=== PATIENT | male | born 1965 | race Caucasian/White ===

== ENCOUNTER 2023-02-20 11:19 | Emergency (ER) | payer OTHER, SELFPAY ==
--- OUTSIDE RECORDS SUMMARY | 2023-02-20 11:25 | XMS REPORT | Continuity of Care Document ---
:1965 Author Organization [facility] t Address [address] [facility] [address] [place] [address] Care Team Providers Name Role Phone Mel Thomason Primary Care Physician ELVIS GUADALUPE Attending Clinician Unavailable Elvis Guadalupe MD Attending Clinician Carmelo Solis CRNA Attending Clinician Geoff Perrin MD Attending Clinician [phone] Doctor Unassigned, [place] Attending Clinician Unavailable ONEIL SEARS Attending Clinician Unavailable ONEIL SEARS Attending Clinician Unavailable Oneil Sears MD Attending Clinician Radiology Attending Clinician Unavailable RADIOLOGY Attending Clinician Unavailable 1, [facility] Sleep Lab Bed Attending Clinician Unavailable Only, Ad[facility] Test Attending Clinician Unavailable Carol Hollins RN Attending Clinician Unavailable ELVIS GUADALUPE Admitting Clinician Unavailable Elvis Guadalupe MD Admitting Clinician Payers Payer Name Policy Type Policy Number Effective Date Expiration Date S [employer] [id number] 2019 00:00:00 Problems Condition Condition Condition Status Onset Resolution Last Treating Co mments Source Name Details Category Date Date Treatment Clinician Date Obesity Obesity Disease Active Univers (BMI (BMI 5-11 ity of 30-39.9) 30-39.9) 00:00: [place] 00 Medical Branch Allergies, Adverse Reactions, Alerts Allergy Allergy Status Severity Reaction(s) Onset Inactive Treating Comm ents Source Name Type Date Date Clinician PENICILL Drug Active High Hives Univers INS Class 5-04 ity of 00:00: Medical Branch TETANUS DRUG Active Low Other-Cmnt Unive rs TOXOID 5-04 ity of 00:00: Medical Branch DENTAL DRUG Active High Anaphylaxis Unive rs ANESTHET 11-05 ity of IC 00:00: Medical Branch Dental Drug Active Anaphylaxis Patient Univ ers Anesthet Allergy 11-05 given ity of ic 00:00: non-novoc [place] sarah [facility] dental Branch anestheti c and had anaphylac tic reaction, does not know the name of medicatio n. Penicill Drug Active Hives Univers ins Allergy 11-05 ity of 00:00: 00 Medical Branch Tetanus Propensi Active Other - See Un graham Toxoid ty to comments 11-05 ity of adverse 00:00: [place] reaction 00 Medical s to Branch drug n Propensi Active ty to 6-20 adverse 00:00: reaction 00 to drug Tetanus- Propensi Active Diphther ty to 3-25 ia adverse 00:00: Toxoids reaction 00 Td - to drug Intramus cular Tetanus Propensi Active Toxoid ty to 5-12 adverse 00:00: reaction 00 to drug NO KNOWN Drug Active Univers ALLERGIE Class ity of S [facility] Social History Social Habit Start Date Stop Date Quantity Comments Source Exposure to 2022-10-26 2022-11-05 Not sure [facility] SARS-CoV-2 00:00:00 12:10:00 [facility]ly [facility] (event) Branch Tobacco use and 2022-11-05 2022-11-05 User of smokeless Un iversity of exposure 00:00:00 00:00:00 tobacco [facility] Sex Ass[birth year] At [birth year] Universit y of 00:00:00 00:00:00 [facility] Smoking Status Start Date Stop Date Source Never smoked tobacco [facility] [place] [facility] Ordered Filled Start Stop Current Ordering Indication Dosage Frequency Signature Comments Components Source Medication Medication Date Date Medication? Clinician (SIG) Name Name neomycin-po 2022- PRN, Unive rs lymyxin-dex 11-12 Starting ity of amethasone 13:50: 13:59 [place] (MAXITROL) 00 :24 11/12/22 at Med ical 3.5 0850, Branch mg/g-10,000 Until [place] unit/g-0.1 11/12/22 at % 0859, ophthalmic Routine, ointment Intra-op gentamicin 2022- No PRN, Univer s injection 11-12 Starting ity o f 13:50: 13:59 on [facility] [place] 00 :24 11/12/22 at Medical 0850, Branch Until [place] 11/12/22 at 0859, PARMJIT, Intra-op chondroitin 2022- No PRN, Unive rs sulf-sod 11-12 Starting ity of hyaluronate 13:44: 13:59 on [place] (DUOVISC 00 :24 11/12/22 at Medic al VISCO 0844, Branch ELASTIC) Until [place] intraocular 11/12/22 at injection 0859, Routine, Intra-op EPINEPHrine 2022- No PRN, Unive rs (PF) 11-12 Starting ity of 1:1,000 (1 13:43: 13:59 [place] mg/mL) 00 :24 11/12/22 at Medical (ADRENALIN 0843, Branch (PF)) Until [place] injection 11/12/22 at 0859, Routine, Intra-op water for 2022- No PRN, Univers irrigation 11-12 Starting ity of irrigation 13:38: 13:59 [place] solution 00 :24 11/12/22 at Medic al 0838, Branch Until [place] 11/12/22 at 0859, Routine, Intra-op tetracaine 2022- No PRN, Univer s (PONTOCAINE 11-12 Starting ity of ) 0.5 % 13:36: 13:59 on [facility] [place] ophthalmic 00 :24 11/12/22 at Med ical drops 0836, Branch Until [place] 11/12/22 at 0859, Routine, Intra-op eye block 2022- No PRN, Univers syringe 11 11-12 Starting ity of mL 13:35: 13:59 on [facility] [place] 00 :24 11/12/22 at Medical 0835, Branch Until [place] 11/12/22 at 0859, Intra-op dexamethaso 2022- No PRN, Unive rs ne 11-12 Starting ity of (DECADRON 13:35: 13:59 on [facility] [place] PHOSPHATE) 00 :24 11/12/22 at Med ical injection 0835, Branch Until [place] 11/12/22 at 0859, Routine, Intra-op propofoL IV 2022- No Intravenou Univers infusion 11-12 s, ONCE ity of 13:34: 13:57 INTRA [place] 00 :57 PROCEDURE, Medical Starting Branch on [place] 11/12/22 at 0834, Until [place] 11/12/22 at 0857, Routine, Intra-op balanced 2022- No PRN, Univers salt soln 11-12 Starting ity o f no.2 irrig. 13:34: 13:59 on [facility] [place] (BSS) 00 :24 11/12/22 at [facility] ophthalmic 0834, Branch solution Until [place] 11/12/22 at 0859, Routine, Intra-op lactated 2022- No IV Univers ringers IV 11-12 Infusion, ity of infusion 13:29: 13:57 [place] 00 :57 PRN, Medical Starting Branch on [place] 11/12/22 at 0829, Until [place] 11/12/22 at 0857, Routine, Intra-op cyclopent 2022- No .5mL 0.5 mL, Univ ers 1%-tropic 11-12 Left Eye, ity of 1%-phenyl 12:15: 12:19 ONCE[place] 1 [place] 2.5%-ketor 00 :00 dose, On Medic al 0.5% [facility] (MYDRIATIC 11/12/22 at #5) 0715, ophthalmic Routine, solution DSU Pre-op syringe 0.5 mL lactated 2022- No 1000mL at 42 Unive rs ringers IV 5-11 05-11 mL/hr, ity of infusion 12:15: 12:19 1,000 mL, [place] 1,000 mL 00 :00 IV Medical Infusion, Branch ONCE, 1 dose, On [place] 11/12/22 at 0715, Routine, DSU Pre-op cyclopent 2022- No .5mL 0.5 mL, Univ ers 1%-tropic 11-12 Left Eye, ity of 1%-phenyl 12:15: 12:19 ONCE, 1 [place] 2.5%-ketor 00 :00 dose, On Medic al 0.5% [place] Branch (MYDRIATIC 11/12/22 at #5) 0715, ophthalmic Routine, solution DSU Pre-op syringe 0.5 mL lactated 2022- No 1000mL at 42 Unive rs ringers IV 11-12 mL/hr, ity of infusion 12:15: 12:19 1,000 mL, [place] 1,000 mL 00 :00 IV Medical Infusion, Branch ONCE, 1 dose, On [place] 11/12/22 at 0715, Routine, DSU Pre-op loratadine 2022-0 Yes 10mg Take 1 Unive rs 10 mg 5-11 tablet by ity of tablet 10:27: mouth at [place] [address] bedtime as Medical needed for Branch Allergies. fluticasone 2022-0 Yes Use in Univ ers propionate 5-11 each ity of 50 10:27: nostril as [place] mcg/actuati 33 needed. Medic al on nasal Branch spray loratadine 2022-0 Yes 10mg Take 1 Unive rs 10 mg 5-11 tablet by ity of tablet 10:27: mouth at [place] [address] bedtime as Medical needed for Branch Allergies. fluticasone 2022-0 Yes Use in Univ ers propionate 5-11 each ity of 50 10:27: nostril as [place] mcg/actuati 33 needed. Medic al on nasal Branch spray loratadine 3-0 Yes 10mg Take 1 Unive rs 10 mg 5-11 tablet by ity of tablet 10:27: mouth at [place] 33 bedtime as Medical needed for Branch Allergies. fluticasone 3-0 Yes Use in Univ ers propionate 5-11 each ity of 50 10:27: nostril as [place] mcg/actuati 33 needed. Medic al on nasal Branch spray loratadine 0 Yes 10mg Take 1 Unive rs 10 mg 5-11 tablet by ity of tablet 08:59: mouth at [place] 25 bedtime as Medical needed for Branch Allergies. fluticasone 0 Yes Use in Univ ers propionate 5-11 each ity of 50 08:59: nostril as [place] mcg/actuati 25 needed. Medic al on nasal Branch spray TAKE 1 0 No 10 TABLET BY 7-30 MOUTH DAILY 00:00: 00 Dose 2021-0 No Unknown 7-30 00:00: 00 TAKE 1 2021-0 No 20 CAPSULE 7-30 DAILY EVERY 00:00: MORNING 00 BEFORE BREAKFAST. TAKE 1 2021-0 No 500 TABLET 7-30 TWICE 00:00: DAILY. 00 Dose 2021-0 No Unknown 7-30 00:00: 00 TAKE 1 2021-0 No 500 TABLET 7-30 TWICE 00:00: DAILY. 00 TAKE 1 2021-0 No 20 CAPSULE 7-30 DAILY EVERY 00:00: MORNING 00 BEFORE BREAKFAST. Dose 2021-0 No Unknown 7-30 00:00: 00 TAKE 1 2021-0 No 10 TABLET 7-30 DAILY. 00:00: 00 TAKE 1 2021-0 [place] [id number] TABLET 7-17 DAILY. 00:00: 00 ciprofloxac 2021-0 No 1mg in 250 mg 7-15 tablet 00:00: 00 Dose 2021-0 No Unknown 7-15 00:00: 00 TAKE 1 2021-0 [place] [id number] TABLET 7-15 DAILY. 00:00: 00 USE 1 SPRAY 2021-0 No 50 IN EACH 7-15 NOSTRIL 00:00: ONCE DAILY. 00 TAKE 1 2021-0 No 10 TABLET 7-15 DAILY. 00:00: 00 TAKE 1 2021-0 No 10 TABLET 7-15 DAILY. 00:00: 00 TAKE 1 2021-0 No 145 TABLET 7-15 DAILY. 00:00: 00 TAKE 1 2021-0 No 500 TABLET 7-15 TWICE 00:00: DAILY. 00 ciprofloxac 2021-0 No 1mg in 250 mg 7-15 tablet 00:00: 00 Dose 2021-0 No Unknown 7-15 00:00: 00 TAKE 1 2021-0 [place] [id number] TABLET 7-15 DAILY. 00:00: 00 USE 1 SPRAY 2022-0 No 50 IN EACH 7-15 NOSTRIL 00:00: ONCE DAILY. 00 TAKE 1 2022-0 No 10 TABLET 7-15 DAILY. 00:00: 00 TAKE 1 2022-0 No 10 TABLET 7-15 DAILY. 00:00: 00 TAKE 1 2022-0 No 145 TABLET 7-15 DAILY. 00:00: 00 TAKE 1 2022-0 No 500 TABLET 7-15 TWICE 00:00: DAILY. 00 TAKE 1 2022-0 No 145 TABLET 7-02 DAILY. 00:00: 00 TAKE 1 2022-0 No 145 TABLET 7-02 DAILY. 00:00: 00 meloxicam 2022-0 No 1mg 7.5 mg 6-20 tablet 00:00: 00 loratadine 2022-0 No 1mg 10 mg 6-20 tablet 00:00: 00 Tricor 145 2022-0 No 1mg mg tablet 6-20 00:00: 00 losartan 2022-0 No 1mg 100 6-20 mg-hydrochl 00:00: orothiazide 00 25 mg tablet cyclobenzap 2022-0 No 1mg rine 10 mg 6-20 tablet 00:00: 00 metformin 2022-0 No 1mg 500 mg 6-20 tablet 00:00: 00 omeprazole 2022-0 No 1mg 20 mg 6-20 capsule,del 00:00: ayed 00 release TAKE 1 2022-0 No 20 CAPSULE 6-20 DAILY EVERY 00:00: MORNING 00 BEFORE BREAKFAST. TAKE 1 2-0 No 75 TABLET 6-20 DAILY. 00:00: 00 meloxicam 2022-0 No 1mg 7.5 mg 6-20 tablet 00:00: 00 loratadine 2022-0 No 1mg 10 mg 6-20 tablet 00:00: 00 Tricor 145 2022-0 No 1mg mg tablet 6-20 00:00: 00 losartan 2022-0 No 1mg 100 6-20 mg-hydrochl 00:00: orothiazide 00 25 mg tablet cyclobenzap 2022-0 No 1mg rine 10 mg 6-20 tablet 00:00: 00 metformin 2022-0 No 1mg 500 mg 6-20 tablet 00:00: 00 omeprazole 2022-0 No 1mg 20 mg 6-20 capsule,del 00:00: ayed 00 release TAKE 1 2022-0 No 20 CAPSULE 6-20 DAILY EVERY 00:00: MORNING 00 BEFORE BREAKFAST. TAKE 1 2021-0 No 75 TABLET 6-20 DAILY. 00:00: 00 loratadine 2021-0 No 1mg 10 mg 4-02 tablet 00:00: 00 meloxicam 2021-0 No 1mg 7.5 mg 4-02 tablet 00:00: 00 Flonase 2021-0 No 1mcg/ac Allergy 4-02 tuation Relief 50 00:00: mcg/actuati 00 on nasal spray,suspe nsion loratadine 2021-0 No 1mg 10 mg 4-02 tablet 00:00: 00 meloxicam 2021-0 No 1mg 7.5 mg 4-02 tablet 00:00: 00 Flonase 2021-0 No 1mcg/ac Allergy 4-02 tuation Relief 50 00:00: mcg/actuati 00 on nasal spray,suspe nsion cyclobenzap 2020-07 No 1mg rine 10 mg 2-06 tablet 00:00: 00 metformin 2020- No 1mg 500 mg 2-06 tablet 00:00: 00 omeprazole 2020- No 1mg 20 mg 2-06 capsule,del 00:00: ayed 00 release Dose 2020- No Unknown 2-06 00:00: 00 Tricor 145 2020- No 1mg mg tablet 2-06 00:00: 00 losartan 2020-1 No 1mg 100 2-06 mg-hydrochl 00:00: orothiazide 00 25 mg tablet cyclobenzap 2020- No 1mg rine 10 mg 2-06 tablet 00:00: 00 metformin 2020-1 No 1mg 500 mg 2-06 tablet 00:00: 00 omeprazole 2020-1 No 1mg 20 mg 2-06 capsule,del 00:00: ayed 00 release Dose 2020- No Unknown 2-06 00:00: 00 Tricor 145 2020- No 1mg mg tablet 2-06 00:00: 00 losartan 2020-1 No 1mg 100 2-06 mg-hydrochl 00:00: orothiazide 00 25 mg tablet meloxicam 2020- No 1mg 7.5 mg 1-18 tablet 00:00: 00 meloxicam 2020- No 1mg 7.5 mg 1-18 tablet 00:00: 00 Tricor 145 2021-0 No 1mg mg tablet 8-20 00:00: 00 meloxicam 2021-0 No 1mg 7.5 mg 8-20 tablet 00:00: 00 Tricor 145 2021-0 No 1mg mg tablet 8-20 00:00: 00 meloxicam 2021-0 No 1mg 7.5 mg 8-20 tablet 00:00: 00 Tricor 145 2021-0 No 1mg mg tablet 7-28 00:00: 00 Tricor 145 2021-0 No 1mg mg tablet 7-28 00:00: 00 losartan 2021-0 No 1mg 100 7-17 mg-hydrochl 00:00: orothiazide 00 25 mg tablet cyclobenzap 1-0 No 1mg rine 10 mg 7-17 tablet 00:00: 00 metformin 2021-0 No 1mg 500 mg 7-17 tablet 00:00: 00 omeprazole 2021-0 No 1mg 20 mg 7-17 capsule,del 00:00: ayed 00 release Macrobid 1-0 No 1mg 100 mg 7-17 capsule 00:00: 00 losartan 2021-0 No 1mg 100 7-17 mg-hydrochl 00:00: orothiazide 00 25 mg tablet cyclobenzap 1-0 No 1mg rine 10 mg 7-17 tablet 00:00: 00 metformin 2021-0 No 1mg 500 mg 7-17 tablet 00:00: 00 omeprazole 2021-0 No 1mg 20 mg 7-17 capsule,del 00:00: ayed 00 release Macrobid 1-0 No 1mg 100 mg 7-17 capsule 00:00: 00 losartan 2020-1 No 1mg 100 2-19 mg-hydrochl 00:00: orothiazide 00 25 mg tablet cyclobenzap 2020-1 No 1mg rine 10 mg 2-19 tablet 00:00: 00 Tricor 48 2019-1 No 1mg mg tablet 2-19 00:00: 00 metformin 2020-1 No 1mg 500 mg 2-19 tablet 00:00: 00 Cialis 10 2019-1 No 1mg mg tablet 2-19 00:00: 00 omeprazole 2020-1 No 1mg 20 mg 2-19 capsule,del 00:00: ayed 00 release losartan 2020-1 No 1mg 100 2-19 mg-hydrochl 00:00: orothiazide 00 25 mg tablet cyclobenzap 2019- No 1mg rine 10 mg 2-19 tablet 00:00: 00 Tricor 48 2019- No 1mg mg tablet 2-19 00:00: 00 metformin 2019-1 No 1mg 500 mg 2-19 tablet 00:00: 00 Cialis 10 2019- No 1mg mg tablet 2-19 00:00: 00 omeprazole 2019-1 No 1mg 20 mg 2-19 capsule,del 00:00: ayed 00 release fenofibrate 2020-0 Yes TK 1 T PO U nivers 48 mg 9-23 D ity of tablet 00:00: [address] Branch losartan-hy 2020-0 Yes TK 1 T PO U nivers drochloroth 9-23 QD ity of iazide 00:00: [place] 100-25 mg 00 Medical per tablet Branch omeprazole 2020-0 Yes TK ONE C Uni vers 20 mg 9-23 PO QD ity of capsule 00:00: [place] [address] Medical Branch fenofibrate 2020-0 Yes TK 1 T PO U nivers 48 mg 9-23 D ity of tablet 00:00: [place] [address] Medical Branch losartan-hy 2020-0 Yes TK 1 T PO U nivers drochloroth 9-23 QD ity of iazide 00:00: [place] 100-25 mg 00 Medical per tablet Branch omeprazole 2020-0 Yes TK ONE C Uni vers 20 mg 9-23 PO QD ity of capsule 00:00: [address] Branch fenofibrate 2020-0 Yes TK 1 T PO U nivers 48 mg 9-23 D ity of tablet 00:00: [place] [address] Medical Branch losartan-hy 2020-0 Yes TK 1 T PO U nivers drochloroth 9-23 QD ity of iazide 00:00: [place] 100-25 mg 00 Medical per tablet Branch omeprazole 2020-0 Yes TK ONE C Uni vers 20 mg 9-23 PO QD ity of capsule 00:00: [address] Branch fenofibrate 2020-0 Yes TK 1 T PO U nivers 48 mg 9-23 D ity of tablet 00:00: [place] [address] Medical Branch losartan-hy 2020-0 Yes TK 1 T PO U nivers drochloroth 9-23 QD ity of iazide 00:00: [place] 100-25 mg 00 Medical per tablet Branch omeprazole 2020-0 Yes TK ONE C Uni vers 20 mg 9-23 PO QD ity of capsule 00:00: [place] 00 Medical Branch fenofibrate 2020-0 Yes TK 1 T PO U nivers 48 mg 9-23 D ity of tablet 00:00: [place] 00 Medical Branch losartan-hy 2020-0 Yes TK 1 T PO U nivers drochloroth 9-23 QD ity of iazide 00:00: [place] 100-25 mg 00 Medical per tablet Branch omeprazole 2020-0 Yes TK ONE C Uni vers 20 mg 9-23 PO QD ity of capsule 00:00: [place] Medical Branch fenofibrate 2020-0 Yes TK 1 T PO U nivers 48 mg 9-23 D ity of tablet 00:00: [place] Medical Branch losartan-hy 2020-0 Yes TK 1 T PO U nivers drochloroth 9-23 QD ity of iazide 00:00: [place] 100-25 mg 00 Medical per tablet Branch omeprazole 2020-0 Yes TK ONE C Uni vers 20 mg 9-23 PO QD ity of capsule 00:00: [place] Medical Branch fenofibrate 2020-0 Yes TK 1 T PO U nivers 48 mg 9-23 D ity of tablet 00:00: [place] [address] Medical Branch losartan-hy 2020-0 Yes TK 1 T PO U nivers drochloroth 9-23 QD ity of iazide 00:00: [place] 100-25 mg 00 Medical per tablet Branch omeprazole 2020-0 Yes TK ONE C Uni vers 20 mg 9-23 PO QD ity of capsule 00:00: [place] [facility] Branch fenofibrate 2020-0 Yes TK 1 T PO U nivers 48 mg 9-23 D ity of tablet 00:00: [place] 00 Medical Branch losartan-hy 2020-0 Yes TK 1 T PO U nivers drochloroth 9-23 QD ity of iazide 00:00: [place] 100-25 mg 00 Medical per tablet Branch omeprazole 2020-0 Yes TK ONE C Uni vers 20 mg 9-23 PO QD ity of capsule 00:00: [place] 00 Medical Branch fenofibrate 2020-0 Yes TK 1 T PO U nivers 48 mg 9-23 D ity of tablet 00:00: [place] [address] Medical Branch losartan-hy 2020-0 Yes TK 1 T PO U nivers drochloroth 9-23 QD ity of iazide 00:00: [place] 100-25 mg 00 Medical per tablet Branch omeprazole 2020-0 Yes TK ONE C Uni vers 20 mg 9-23 PO QD ity of capsule 00:00: [place] 00 Medical Branch fenofibrate 2020-0 Yes TK 1 T PO U nivers 48 mg 9-23 D ity of tablet 00:00: [place] 00 Medical Branch losartan-hy 2020-0 Yes TK 1 T PO U nivers drochloroth 9-23 QD ity of iazide 00:00: [place] 100-25 mg 00 Medical per tablet Branch omeprazole 2020-0 Yes TK ONE C Uni vers 20 mg 9-23 PO QD ity of capsule 00:00: [place] 00 Medical Branch fenofibrate 2020-0 Yes TK 1 T PO U nivers 48 mg 9-23 D ity of tablet 00:00: [place] 00 Medical Branch losartan-hy 2020-0 Yes TK 1 T PO U nivers drochloroth 9-23 QD ity of iazide 00:00: [place] 100-25 mg 00 Medical per tablet Branch omeprazole 2020-0 Yes TK ONE C Uni vers 20 mg 9-23 PO QD ity of capsule 00:00: [place] 00 Medical Branch fenofibrate 2020-0 Yes TK 1 T PO U nivers 48 mg 9-23 D ity of tablet 00:00: [place] 00 Medical Branch losartan-hy 2020-0 Yes TK 1 T PO U nivers drochloroth 9-23 QD ity of iazide 00:00: [place] 100-25 mg 00 Medical per tablet Branch omeprazole 2020-0 Yes TK ONE C Uni vers 20 mg 9-23 PO QD ity of capsule 00:00: [place] 00 Medical Branch fenofibrate 2020-0 Yes TK 1 T PO U nivers 48 mg 9-23 D ity of tablet 00:00: [place] 00 Medical Branch losartan-hy 2020-0 Yes TK 1 T PO U nivers drochloroth 9-23 QD ity of iazide 00:00: [place] 100-25 mg 00 Medical per tablet Branch omeprazole 2020-0 Yes TK ONE C Uni vers 20 mg 9-23 PO QD ity of capsule 00:00: [place] 00 Medical Branch fenofibrate 2020-0 Yes TK 1 T PO U nivers 48 mg 9-23 D ity of tablet 00:00: [place] 00 Medical Branch losartan-hy 2020-0 Yes TK 1 T PO U nivers drochloroth 9-23 QD ity of iazide 00:00: [place] 100-25 mg 00 Medical per tablet Branch omeprazole 2020-0 Yes TK ONE C Uni vers 20 mg 9-23 PO QD ity of capsule 00:00: [place] 00 Medical Branch fenofibrate 2020-0 Yes TK 1 T PO U nivers 48 mg 9-23 D ity of tablet 00:00: [place] 00 Medical Branch losartan-hy 2020-0 Yes TK 1 T PO U nivers drochloroth 9-23 QD ity of iazide 00:00: [place] 100-25 mg 00 Medical per tablet Branch omeprazole 2020-0 Yes TK ONE C Uni vers 20 mg 9-23 PO QD ity of capsule 00:00: [place] 00 Medical Branch fenofibrate 2020-0 Yes TK 1 T PO U nivers 48 mg 9-23 D ity of tablet 00:00: [place] 00 Medical Branch losartan-hy 2020-0 Yes TK 1 T PO U nivers drochloroth 9-23 QD ity of iazide 00:00: [place] 100-25 mg 00 Medical per tablet Branch omeprazole 2020-0 Yes TK ONE C Uni vers 20 mg 9-23 PO QD ity of capsule 00:00: [place] 00 Medical Branch fenofibrate 2020-0 Yes TK 1 T PO U nivers 48 mg 9-23 D ity of tablet 00:00: [place] 00 Medical Branch losartan-hy 2020-0 Yes TK 1 T PO U nivers drochloroth 9-23 QD ity of iazide 00:00: [place] 100-25 mg 00 Medical per tablet Branch omeprazole 2020-0 Yes TK ONE C Uni vers 20 mg 9-23 PO QD ity of capsule 00:00: [place] 00 Medical Branch fenofibrate 2020-0 Yes TK 1 T PO U nivers 48 mg 9-23 D ity of tablet 00:00: [place] 00 Medical Branch losartan-hy 2020-0 Yes TK 1 T PO U nivers drochloroth 9-23 QD ity of iazide 00:00: [place] 100-25 mg 00 Medical per tablet Branch omeprazole 2020-0 Yes TK ONE C Uni vers 20 mg 9-23 PO QD ity of capsule 00:00: [place] 00 Medical Branch fenofibrate 2020-0 Yes TK 1 T PO U nivers 48 mg 9-23 D ity of tablet 00:00: [place] 00 Medical Branch losartan-hy 2020-0 Yes TK 1 T PO U nivers drochloroth 9-23 QD ity of iazide 00:00: [place] 100-25 mg 00 Medical per tablet Branch omeprazole 2020-0 Yes TK ONE C Uni vers 20 mg 9-23 PO QD ity of capsule 00:00: [place] 00 Medical Branch fenofibrate 2020-0 Yes TK 1 T PO U nivers 48 mg 9-23 D ity of tablet 00:00: [place] 00 Medical Branch losartan-hy 2020-0 Yes TK 1 T PO U nivers drochloroth 9-23 QD ity of iazide 00:00: [place] 100-25 mg 00 Medical per tablet Branch omeprazole 2020-0 Yes TK ONE C Uni vers 20 mg 9-23 PO QD ity of capsule 00:00: [place] [address] Medical Branch fenofibrate 2020-0 Yes TK 1 T PO U nivers 48 mg 9-23 D ity of tablet 00:00: [place] [address] Medical Branch losartan-hy 2020-0 Yes TK 1 T PO U nivers drochloroth 9-23 QD ity of iazide 00:00: [place] 100-25 mg 00 Medical per tablet Branch omeprazole 2020-0 Yes TK ONE C Uni vers 20 mg 9-23 PO QD ity of capsule 00:00: [place] 00 Medical Branch fenofibrate 2020-0 Yes TK 1 T PO U nivers 48 mg 9-23 D ity of tablet 00:00: [place] 00 Medical Branch losartan-hy 2020-0 Yes TK 1 T PO U nivers drochloroth 9-23 QD ity of iazide 00:00: [place] 100-25 mg 00 Medical per tablet Branch omeprazole 2020-0 Yes TK ONE C Uni vers 20 mg 9-23 PO QD ity of capsule 00:00: [place] 00 Medical Branch fenofibrate 2020-0 Yes TK 1 T PO U nivers 48 mg 9-23 D ity of tablet 00:00: [place] 00 Medical Branch losartan-hy 2020-0 Yes TK 1 T PO U nivers drochloroth 9-23 QD ity of iazide 00:00: [place] 100-25 mg 00 Medical per tablet Branch omeprazole 2020-0 Yes TK ONE C Uni vers 20 mg 9-23 PO QD ity of capsule 00:00: [place] 00 Medical Branch fenofibrate 2020-0 Yes TK 1 T PO U nivers 48 mg 9-23 D ity of tablet 00:00: [place] 00 Medical Branch losartan-hy 2020-0 Yes TK 1 T PO U nivers drochloroth 9-23 QD ity of iazide 00:00: [place] 100-25 mg 00 Medical per tablet Branch omeprazole 2020-0 Yes TK ONE C Uni vers 20 mg 9-23 PO QD ity of capsule 00:00: [place] 00 Medical Branch fenofibrate 2020-0 Yes TK 1 T PO U nivers 48 mg 9-23 D ity of tablet 00:00: [place] 00 Medical Branch losartan-hy 2020-0 Yes TK 1 T PO U nivers drochloroth 9-23 QD ity of iazide 00:00: [place] 100-25 mg 00 Medical per tablet Branch omeprazole 2020-0 Yes TK ONE C Uni vers 20 mg 9-23 PO QD ity of capsule 00:00: [place] 00 Medical Branch fenofibrate 2020-0 Yes TK 1 T PO U nivers 48 mg 9-23 D ity of tablet 00:00: [place] 00 Medical Branch losartan-hy 2020-0 Yes TK 1 T PO U nivers drochloroth 9-23 QD ity of iazide 00:00: [place] 100-25 mg 00 Medical per tablet Branch omeprazole 2020-0 Yes TK ONE C Uni vers 20 mg 9-23 PO QD ity of capsule 00:00: [place] 00 Medical Branch sulfamethox 2020-0 Yes TK 1 T PO U nivers azole-trime 9-12 BID ity of thoprim 00:00: [place] 800-160 mg 00 Medical per tablet Branch sulfamethox 2020-0 Yes TK 1 T PO U nivers azole-trime 9-12 BID ity of thoprim 00:00: [place] 800-160 mg 00 Medical per tablet Branch sulfamethox 2020-0 Yes TK 1 T PO U nivers azole-trime 9-12 BID ity of thoprim 00:00: [place] 800-160 mg 00 Medical per tablet Branch sulfamethox 2020-0 Yes TK 1 T PO U nivers azole-trime 9-12 BID ity of thoprim 00:00: [place] 800-160 mg 00 Medical per tablet Branch sulfamethox 2020-0 Yes TK 1 T PO U nivers azole-trime 9-12 BID ity of thoprim 00:00: [place] 800-160 mg 00 Medical per tablet Branch sulfamethox 2020-0 Yes TK 1 T PO U nivers azole-trime 9-12 BID ity of thoprim 00:00: [place] 800-160 mg 00 Medical per tablet Branch sulfamethox 2020-0 Yes TK 1 T PO U nivers azole-trime 9-12 BID ity of thoprim 00:00: [place] 800-160 mg 00 Medical per tablet Branch sulfamethox 2020-0 Yes TK 1 T PO U nivers azole-trime 9-12 BID ity of thoprim 00:00: [place] 800-160 mg 00 Medical per tablet Branch sulfamethox 2020-0 Yes TK 1 T PO U nivers azole-trime 9-12 BID ity of thoprim 00:00: [place] 800-160 mg 00 Medical per tablet Branch sulfamethox 2020-0 Yes TK 1 T PO U nivers azole-trime 9-12 BID ity of thoprim 00:00: [place] 800-160 mg 00 Medical per tablet Branch sulfamethox 2020-0 Yes TK 1 T PO U nivers azole-trime 9-12 BID ity of thoprim 00:00: [place] 800-160 mg 00 Medical per tablet Branch sulfamethox 2020-0 Yes TK 1 T PO U nivers azole-trime 9-12 BID ity of thoprim 00:00: [place] 800-160 mg 00 Medical per tablet Branch sulfamethox 2020-0 Yes TK 1 T PO U nivers azole-trime 9-12 BID ity of thoprim 00:00: [place] 800-160 mg 00 Medical per tablet Branch sulfamethox 2020-0 Yes TK 1 T PO U nivers azole-trime 9-12 BID ity of thoprim 00:00: [place] 800-160 mg 00 Medical per tablet Branch sulfamethox 2020-0 Yes TK 1 T PO U nivers azole-trime 9-12 BID ity of thoprim 00:00: [place] 800-160 mg 00 Medical per tablet Branch sulfamethox 2020-0 Yes TK 1 T PO U nivers azole-trime 9-12 BID ity of thoprim 00:00: [place] 800-160 mg 00 Medical per tablet Branch sulfamethox 2020-0 Yes TK 1 T PO U nivers azole-trime 9-12 BID ity of thoprim 00:00: [place] 800-160 mg 00 Medical per tablet Branch sulfamethox 2020-0 Yes TK 1 T PO U nivers azole-trime 9-12 BID ity of thoprim 00:00: [place] 800-160 mg 00 Medical per tablet Branch sulfamethox 2020-0 Yes TK 1 T PO U nivers azole-trime 9-12 BID ity of thoprim 00:00: [place] 800-160 mg 00 Medical per tablet Branch sulfamethox 2020-0 Yes TK 1 T PO U nivers azole-trime 9-12 BID ity of thoprim 00:00: [place] 800-160 mg 00 Medical per tablet Branch sulfamethox 2020-0 Yes TK 1 T PO U nivers azole-trime 9-12 BID ity of thoprim 00:00: [place] 800-160 mg 00 Medical per tablet Branch sulfamethox 2020-0 Yes TK 1 T PO U nivers azole-trime 9-12 BID ity of thoprim 00:00: [place] 800-160 mg 00 Medical per tablet Branch sulfamethox 2020-0 Yes TK 1 T PO U nivers azole-trime 9-12 BID ity of thoprim 00:00: [place] 800-160 mg 00 Medical per tablet Branch sulfamethox 2020-0 Yes TK 1 T PO U nivers azole-trime 9-12 BID ity of thoprim 00:00: [place] 800-160 mg 00 Medical per tablet Branch sulfamethox 2020-0 Yes TK 1 T PO U nivers azole-trime 9-12 BID ity of thoprim 00:00: [place] 800-160 mg 00 Medical per tablet Branch sulfamethox 2020-0 Yes TK 1 T PO U nivers azole-trime 9-12 BID ity of thoprim 00:00: [place] 800-160 mg 00 Medical per tablet Branch Bactrim DS 2020-0 No 1mg 800 mg-160 9-12 mg tablet 00:00: 00 Bactrim DS 2020-0 No 1mg 800 mg-160 9-12 mg tablet 00:00: 00 Macrobid 2020-0 No 1mg 100 mg 8-08 capsule 00:00: 00 Macrobid 2020-0 No 1mg 100 mg 8-08 capsule 00:00: 00 losartan 2020-0 No 1mg 100 6-06 mg-hydrochl 00:00: orothiazide 00 25 mg tablet cyclobenzap 2020-0 No 1mg rine 10 mg 6-06 tablet 00:00: 00 Tricor 48 2020-0 No 1mg mg tablet 6- 00:00: 00 metformin 2020-0 No 1mg 500 mg 6-06 tablet 00:00: 00 Cialis 10 2020-0 No 1mg mg tablet 6 00:00: 00 omeprazole 2020-0 No 1mg 20 mg 6-06 capsule,del 00:00: ayed 00 release indomethaci 2020-0 No 1mg n ER 75 mg 6-06 capsule,ext 00:00: ended 00 release losartan 2020-0 No 1mg 100 6-06 mg-hydrochl 00:00: orothiazide 00 25 mg tablet cyclobenzap 2020-0 No 1mg rine 10 mg 6-06 tablet 00:00: 00 Tricor 48 2020-0 No 1mg mg tablet 6 00:00: 00 metformin 2020-0 No 1mg 500 mg 6-06 tablet 00:00: 00 Cialis 10 2020-0 No 1mg mg tablet 12-08 00:00: 00 omeprazole 2020-0 No 1mg 20 mg 6-06 capsule,del 00:00: ayed 00 release indomethaci 2020-0 No 1mg n ER 75 mg 6-06 capsule,ext 00:00: ended 00 release losartan 2020-0 No 1mg 100 5-05 mg-hydrochl 00:00: orothiazide 00 25 mg tablet omeprazole 2020-0 No 1mg 20 mg 5-05 capsule,del 00:00: ayed 00 release indomethaci 2020-0 No 1mg n ER 75 mg 5-05 capsule,ext 00:00: ended 00 release losartan 2020-0 No 1mg 100 5-05 mg-hydrochl 00:00: orothiazide 00 25 mg tablet omeprazole 2020-0 No 1mg 20 mg 5-05 capsule,del 00:00: ayed 00 release indomethaci 2020-0 No 1mg n ER 75 mg 5-05 capsule,ext 00:00: ended 00 release losartan 2020-0 No 1mg 100 4-01 mg-hydrochl 00:00: orothiazide 00 25 mg tablet omeprazole 2020-0 No 1mg 20 mg 4-01 capsule,del 00:00: ayed 00 release losartan 2020-0 No 1mg 100 4-01 mg-hydrochl 00:00: orothiazide 00 25 mg tablet omeprazole 2020-0 No 1mg 20 mg 4- capsule,del 00:00: ayed 00 release prednisone 2020-0 No 1mg 5 mg tablet 2- 00:00: 00 cyclobenzap 2020-0 No 1mg rine 10 mg 2-01 tablet 00:00: 00 indomethaci 2020-0 No 1mg n ER 75 mg 2- capsule,ext 00:00: ended 00 release prednisone 2020-0 No 1mg 5 mg tablet 2 00:00: 00 cyclobenzap 2020-0 No 1mg rine 10 mg 2- tablet 00:00: 00 indomethaci 2020-0 No 1mg n ER 75 mg 2- capsule,ext 00:00: ended 00 release Tricor 48 2019-0 No 1mg mg tablet 03-28 00:00: 00 Tricor 48 2019-0 No 1mg mg tablet 03-28 00:00: 00 losartan 2019-0 No 1mg 100 9-21 mg-hydrochl 00:00: orothiazide 00 25 mg tablet metformin 2019-0 No 1mg 500 mg 9-21 tablet 00:00: 00 Cialis 10 2019-0 No 1mg mg tablet 03-25 00:00: 00 indomethaci 2019-0 No 1mg n ER 75 mg 9- capsule,ext 00:00: ended 00 release omeprazole 2019-0 No 1mg 20 mg 9-21 capsule,del 00:00: ayed 00 release losartan 2019-0 No 1mg 100 9-21 mg-hydrochl 00:00: orothiazide 00 25 mg tablet metformin 2019-0 No 1mg 500 mg 9-21 tablet 00:00: 00 Cialis 10 2019-0 No 1mg mg tablet 03-25 00:00: 00 indomethaci 2019-0 No 1mg n ER 75 mg 9-21 capsule,ext 00:00: ended 00 release omeprazole 2019-0 No 1mg 20 mg 9-21 capsule,del 00:00: ayed 00 release metformin 2018-1 No 1mg 500 mg 1-03 tablet 00:00: 00 indomethaci 2018-1 No 1mg n ER 75 mg 1-03 capsule,ext 00:00: ended 00 release omeprazole 2018-1 No 1mg 20 mg 1-03 capsule,del 00:00: ayed 00 release metformin 2018-1 No 1mg 500 mg 1-03 tablet 00:00: 00 indomethaci 2018-1 No 1mg n ER 75 mg 1-03 capsule,ext 00:00: ended 00 release omeprazole 2018-1 No 1mg 20 mg 1-03 capsule,del 00:00: ayed 00 release metformin 2018-0 No 1mg 500 mg 5-19 tablet 00:00: 00 indomethaci 2018-0 No 1mg n ER 75 mg 5-19 capsule,ext 00:00: ended 00 release omeprazole 2018-0 No 1mg 20 mg 5-19 capsule,del 00:00: ayed 00 release indomethaci 2018-0 No 1mg n ER 75 mg 5-19 capsule,ext 00:00: ended 00 release metformin 2018-0 No 1mg 500 mg 5-19 tablet 00:00: 00 indomethaci 2018-0 No 1mg n ER 75 mg 5-19 capsule,ext 00:00: ended 00 release omeprazole 2018-0 No 1mg 20 mg 5-19 capsule,del 00:00: ayed 00 release indomethaci 2018-0 No 1mg n ER 75 mg 5-19 capsule,ext 00:00: ended 00 release metformin 2018-0 No 1mg 500 mg 4-06 tablet 00:00: 00 metformin 2018-0 No 1mg 500 mg 4-06 tablet 00:00: 00 Cialis 2.5 2018-0 No 1mg mg tablet 1-13 00:00: 00 metformin 2018-0 No 1mg 500 mg 1-13 tablet 00:00: 00 indomethaci 2018-0 No 1mg n ER 75 mg 1-13 capsule,ext 00:00: ended 00 release Cialis 2.5 2018-0 No 1mg mg tablet 1-13 00:00: 00 metformin 2018-0 No 1mg 500 mg 1-13 tablet 00:00: 00 indomethaci 2018-0 No 1mg n ER 75 mg 1-13 capsule,ext 00:00: ended 00 release metformin 2018-0 No 1mg 500 mg 1-05 tablet 00:00: 00 indomethaci 2018-0 No 1mg n 50 mg 1-05 capsule 00:00: 00 metformin 2018-0 No 1mg 500 mg 1-05 tablet 00:00: 00 indomethaci 2018-0 No 1mg n 50 mg 1-05 capsule 00:00: 00 indomethaci 2017-1 No 1mg n 50 mg 2-06 capsule 00:00: 00 indomethaci 2017-1 No 1mg n 50 mg 2-06 capsule 00:00: 00 metformin 2017-0 No 1mg 500 mg 9-23 tablet 00:00: 00 omeprazole 2017-0 No 1mg 20 mg 9-23 capsule,del 00:00: ayed 00 release indomethaci 2017-0 No 1mg n 50 mg 9-23 capsule 00:00: 00 metformin 2017-0 No 1mg 500 mg 9-23 tablet 00:00: 00 omeprazole 2017-0 No 1mg 20 mg 9-23 capsule,del 00:00: ayed 00 release indomethaci 2017-0 No 1mg n 50 mg 9-23 capsule 00:00: 00 indomethaci 2017-0 No 1mg n 50 mg 8-24 capsule 00:00: 00 indomethaci 2017-0 No 1mg n 50 mg 8-24 capsule 00:00: 00 omeprazole 2017-0 No 1mg 20 mg 4-22 capsule,del 00:00: ayed 00 release indomethaci 2017-0 No 1mg n 50 mg 4-22 capsule 00:00: 00 omeprazole 2017-0 No 1mg 20 mg 4-22 capsule,del 00:00: ayed 00 release indomethaci 2017-0 No 1mg n 50 mg 4-22 capsule 00:00: 00 indomethaci 2017-0 No 1mg n 50 mg 4-19 capsule 00:00: 00 indomethaci 2017-0 No 1mg n 50 mg 4-19 capsule 00:00: 00 indomethaci 2017-0 No 1mg n 50 mg 1-23 capsule 00:00: 00 indomethaci 2017-0 No 1mg n 50 mg 1-23 capsule 00:00: 00 cetirizine 2016-1 No 1mg 10 mg 1-05 tablet 00:00: 00 cetirizine 2016-1 No 1mg 10 mg 1-05 tablet 00:00: 00 omeprazole 2015-1 No 1mg 20 mg 1-05 capsule,del 00:00: ayed 00 release indomethaci 2015-1 No 1mg n 50 mg 1-05 capsule 00:00: 00 omeprazole 2015-1 No 1mg 20 mg 1-05 capsule,del 00:00: ayed 00 release indomethaci 2015-1 No 1mg n 50 mg 1-05 capsule 00:00: 00 omeprazole 2016-1 No 1mg 20 mg 0-21 capsule,del 00:00: ayed 00 release omeprazole 2016-1 No 1mg 20 mg 0-21 capsule,del 00:00: ayed 00 release omeprazole 2016-0 No 1mg 20 mg 8-30 capsule,del 00:00: ayed 00 release indomethaci 2016-0 No 1mg n 50 mg 8-30 capsule 00:00: 00 omeprazole 2016-0 No 1mg 20 mg 8-30 capsule,del 00:00: ayed 00 release indomethaci 2016-0 No 1mg n 50 mg 8-30 capsule 00:00: 00 Bactrim DS 2016-0 No 1mg 800 mg-160 7-27 mg tablet 00:00: 00 Bactrim DS 2016-0 No 1mg 800 mg-160 7-27 mg tablet 00:00: 00 Cipro 500 2016-0 No 1mg mg tablet 6-11 00:00: 00 omeprazole 2016-0 No 1mg 20 mg 6-11 capsule,del 00:00: ayed 00 release indomethaci 2016-0 No 1mg n 50 mg 6-11 capsule 00:00: 00 Cipro 500 2016-0 No 1mg mg tablet 6-11 00:00: 00 omeprazole 2016-0 No 1mg 20 mg 6-11 capsule,del 00:00: ayed 00 release indomethaci 2016-0 No 1mg n 50 mg 6-11 capsule 00:00: 00 omeprazole 2016-0 No 1mg 20 mg 5-18 capsule,del 00:00: ayed 00 release indomethaci 2016-0 No 1mg n 50 mg 5-18 capsule 00:00: 00 omeprazole 2016-0 No 1mg 20 mg 5-18 capsule,del 00:00: ayed 00 release indomethaci 2016-0 No 1mg n 50 mg 5-18 capsule 00:00: 00 ProAir HFA 2016-0 No 2mcg/ac 90 3-14 tuation mcg/actuati 00:00: on aerosol 00 inhaler ProAir HFA 2016-0 No 2mcg/ac 90 3-14 tuation mcg/actuati 00:00: on aerosol 00 inhaler metformin 2016-0 No 1mg 500 mg 3-14 tablet 00:00: 00 omeprazole 2016-0 No 1mg 20 mg 3-14 capsule,del 00:00: ayed 00 release indomethaci 2016-0 No 1mg n 50 mg 3-14 capsule 00:00: 00 ProAir HFA 2016-0 No 2mcg/ac 90 3-14 tuation mcg/actuati 00:00: on aerosol 00 inhaler ProAir HFA 2016-0 No 2mcg/ac 90 3-14 tuation mcg/actuati 00:00: on aerosol 00 inhaler metformin 2016-0 No 1mg 500 mg 3-14 tablet 00:00: 00 omeprazole 2016-0 No 1mg 20 mg 3-14 capsule,del 00:00: ayed 00 release indomethaci 2016-0 No 1mg n 50 mg 3-14 capsule 00:00: 00 metformin 2016-0 No 1mg 500 mg 1-05 tablet 00:00: 00 omeprazole 2016-0 No 1mg 20 mg 1-05 capsule,del 00:00: ayed 00 release indomethaci 2016-0 No 1mg n 50 mg 1-05 capsule 00:00: 00 metformin 2016-0 No 1mg 500 mg 1-05 tablet 00:00: 00 omeprazole 2016-0 No 1mg 20 mg 1-05 capsule,del 00:00: ayed 00 release indomethaci 2016-0 No 1mg n 50 mg 1-05 capsule 00:00: 00 metformin 2015-1 No 5mg 1,000 mg 1-25 tablet 00:00: 00 metformin 2015-1 No 5mg 1,000 mg 1-25 tablet 00:00: 00 indomethaci 2015-1 No 1mg n 50 mg 0-19 capsule 00:00: 00 indomethaci 2015-1 No 1mg n 50 mg 0-19 capsule 00:00: 00 omeprazole 2015-1 No 1mg 20 mg 0-13 capsule,del 00:00: ayed 00 release indomethaci 2015-1 No 1mg n 50 mg 0-13 capsule 00:00: 00 omeprazole 2015-1 No 1mg 20 mg 0-13 capsule,del 00:00: ayed 00 release indomethaci 2015-1 No 1mg n 50 mg 0-13 capsule 00:00: 00 metformin 2015-0 No 5mg 1,000 mg 8-06 tablet 00:00: 00 omeprazole 2015-0 No 1mg 20 mg 8-06 capsule,del 00:00: ayed 00 release metformin 2015-0 No 5mg 1,000 mg 8-06 tablet 00:00: 00 omeprazole 2015-0 No 1mg 20 mg 8-06 capsule,del 00:00: ayed 00 release omeprazole 2015-0 No 1mg 20 mg 7-17 capsule,del 00:00: ayed 00 release omeprazole 2015-0 No 1mg 20 mg 7-17 capsule,del 00:00: ayed 00 release omeprazole 2015-0 No 1mg 20 mg 6-10 capsule,del 00:00: ayed 00 release omeprazole 2015-0 No 1mg 20 mg 6-10 capsule,del 00:00: ayed 00 release metformin 2015-0 No 5mg 1,000 mg 6-09 tablet 00:00: 00 metformin 2015-0 No 5mg 1,000 mg 6-09 tablet 00:00: 00 metformin 2015-0 No 5mg 1,000 mg 5-13 tablet 00:00: 00 metformin 2015-0 No 5mg 1,000 mg 5-13 tablet 00:00: 00 metformin 2014-0 No 5mg 1,000 mg 9-19 tablet 00:00: 00 metformin 2014-0 No 5mg 1,000 mg 9-19 tablet 00:00: 00 Vital Signs Vital Name Observation Time Observation Value Comments Source Systolic blood 2022-11-12 14:15:00 133 mm[facility]Hg[facility] 2022-11-12 14:15:00 87 mm[Hg] Unive [facility] Respiratory rate 2022-11-12 14:15:00 18 /min [facility] Oxygen saturation in 2022-11-12 14:15:00 95 /min [facility] Arterial blood by [facility] Pulse oximetry Branch Heart rate 2022-11-12 14:05:00 92 /min [facility] Body temperature 2022-11-12 13:56:00 36.11 Francia [facility] Body height 2022-11-05 17:00:00 180.3 cm [facility] Body weight 2022-11-05 17:00:00 111.585 kg [facility] BMI 2022-11-05 17:00:00 34.31 kg/m2 [facility] Respiratory rate 2022-11-12 13:54:00 15 /min [facility] Systolic blood 2022-11-12 12:18:00 137 mm[Hg] Univer sity of [facility] Diastolic blood 2022-11-12 12:18:00 87 mm[Hg] Unive rsity of [facility] Heart rate 2022-11-12 12:18:00 97 /min [facility] [employer] Body temperature 2022-11-12 12:18:00 36.11 Francia Univ ersity [facility] Respiratory rate 2022-11-12 12:18:00 19 /min Univ ersity of [facility] Oxygen saturation in 2022-11-12 12:18:00 98 /min [facility] of Arterial blood by [facility] Pulse oximetry Branch Body height 2022-11-05 17:00:00 180.3 cm [facility] [employer] Body weight 2022-11-05 17:00:00 111.585 kg [facility] [employer] [facility] BMI 2022-11-05 17:00:00 34.31 kg/m2 [facility] Systolic blood 2020-09-04 22:51:00 128 mm[Hg] Univer sity of [facility] Diastolic blood 2020-09-04 22:51:00 87 mm[Hg] Unive rsity of [facility] Heart rate 2020-09-04 22:50:00 109 /min [facility] Respiratory rate 2020-09-04 22:50:00 19 /min Univ ersity of [facility] Body height 2020-09-04 22:50:00 180.3 cm [facility] Body weight 2020-09-04 22:50:00 123.832 kg [facility] BMI 2020-09-04 22:50:00 38.08 kg/m2 [facility] Systolic blood 2020-07-31 22:25:00 118 mm[Hg] Univer sity of [facility] Diastolic blood 2020-07-31 22:25:00 80 mm[Hg] Unive rsity of [facility] Heart rate 2020-07-31 22:25:00 113 /min [facility] Respiratory rate 2020-07-31 22:25:00 19 /min [facility] [place] [facility] Body height 2020-07-31 22:25:00 180.3 [facility] Body weight 2020-07-31 22:25:00 123.832 kg [facility] BMI 2020-07-31 22:25:00 38.08 kg/m2 [facility] Oxygen saturation in 2020-07-31 22:25:00 95 /min [facility] Arterial blood by [facility] Pulse oximetry Branch Systolic blood 2020-05-29 21:33:00 146 mm[Hg] Univer sity of pressure [facility] Diastolic blood 2020-05-29 21:33:00 96 mm[Hg] Unive rsity of pressure [facility] Heart rate 2020-05-29 21:33:00 103 /min [facility] Respiratory rate 2020-05-29 21:33:00 19 /min [facility] in 2020-05-29 21:33:00 97 /min [facility] Arterial blood by [facility] Pulse oximetry Branch BP Systolic 2022-01-31 11:38:00 134 mm[Hg] BP Diastolic 2022-01-31 11:38:00 91 mm[Hg] Weight Measured 2022-01-31 11:38:00 275.80 pounds Height Measured 2022-01-31 11:38:00 70.00 inches Body Temperature 2022-01-31 11:38:00 98.50 degrees Heart Rate 2022-01-31 11:38:00 95.00 /min Respiratory Rate 2022-01-31 11:38:00 BP Systolic 2022-01-16 11:36:00 162 mm[Hg] BP Diastolic 2022-01-16 11:36:00 98 mm[Hg] Weight Measured 2022-01-16 11:36:00 276.60 pounds Height Measured 2022-01-16 11:36:00 70.00 inches Body Temperature 2022-01-16 11:36:00 98.10 degrees Heart Rate 2022-01-16 11:36:00 97.00 /min Respiratory Rate 2022-01-16 11:36:00 18.00 /min BP Systolic 2021-10-04 10:49:00 137 mm[Hg] BP Diastolic 2021-10-04 10:49:00 91 mm[Hg] Weight Measured 2021-10-04 10:49:00 278.00 pounds Height Measured 2021-10-04 10:49:00 70.00 inches Body Temperature 2021-10-04 10:49:00 98.10 degrees Heart Rate 2021-10-04 10:49:00 97.00 /min Respiratory Rate 2021-10-04 10:49:00 BP Systolic 2021-06-21 08:53:00 138 mm[Hg] BP Diastolic 2021-06-21 08:53:00 89 mm[Hg] Weight Measured 2021-06-21 08:53:00 278.00 pounds Height Measured 2021-06-21 08:53:00 70.00 inches Body Temperature 2021-06-21 08:53:00 97.80 degrees Heart Rate 2021-06-21 08:53:00 98.00 /min Respiratory Rate 2021-06-21 08:53:00 BP Systolic 2021-06-09 11:29:00 139 mm[Hg] BP Diastolic 2021-06-09 11:29:00 87 mm[Hg] Weight Measured 2021-06-09 11:29:00 280.00 pounds Height Measured 2021-06-09 11:29:00 70.00 inches Body Temperature 2021-06-09 11:29:00 98.30 degrees Heart Rate 2021-06-09 11:29:00 100.00 /min Respiratory Rate 2021-06-09 11:29:00 BP Systolic 2021-02-21 17:06:00 132 mm[Hg] BP Diastolic 2021-02-21 17:06:00 87 mm[Hg] Weight Measured 2021-02-21 17:06:00 278.50 pounds Height Measured 2021-02-21 17:06:00 70.00 inches Body Temperature 2021-02-21 17:06:00 98.10 degrees Heart Rate 2021-02-21 17:06:00 103.00 /min Respiratory Rate 2021-02-21 17:06:00 BP Systolic 2021-01-31 14:31:00 134 mm[Hg] BP Diastolic 2021-01-31 14:31:00 89 mm[Hg] Weight Measured 2021-01-31 14:31:00 278.40 pounds Height Measured 2021-01-31 14:31:00 70.00 inches Body Temperature 2021-01-31 14:31:00 98.00 degrees Heart Rate 2021-01-31 14:31:00 103.00 /min Respiratory Rate 2021-01-31 14:31:00 BP Systolic 2021-01-18 13:36:00 146 mm[Hg] BP Diastolic 2021-01-18 13:36:00 88 mm[Hg] Weight Measured 2021-01-18 13:36:00 278.00 pounds Height Measured 2021-01-18 13:36:00 70.00 inches Body Temperature 2021-01-18 13:36:00 98.40 degrees Heart Rate 2021-01-18 13:36:00 98.00 /min Respiratory Rate 2021-01-18 13:36:00 BP Systolic 2020-06-22 14:01:00 135 mm[Hg] BP Diastolic 2020-06-22 14:01:00 90 mm[Hg] Weight Measured 2020-06-22 14:01:00 284.40 pounds Height Measured 2020-06-22 14:01:00 70.00 inches Body Temperature 2020-06-22 14:01:00 98.90 degrees Heart Rate 2020-06-22 14:01:00 103.00 /min Respiratory Rate 2020-06-22 14:01:00 BP Systolic 2020-04-19 15:35:00 135 mm[Hg] BP Diastolic 2020-04-19 15:35:00 85 mm[Hg] Weight Measured 2020-04-19 15:35:00 273.80 pounds Height Measured 2020-04-19 15:35:00 70.00 inches Body Temperature 2020-04-19 15:35:00 98.30 degrees Heart Rate 2020-04-19 15:35:00 104.00 /min Respiratory Rate 2020-04-19 15:35:00 20.00 /min BP Systolic 2020-03-16 15:04:00 136 mm[Hg] BP Diastolic 2020-03-16 15:04:00 89 mm[Hg] Weight Measured 2020-03-16 15:04:00 279.00 pounds Height Measured 2020-03-16 15:04:00 70.00 inches Body Temperature 2020-03-16 15:04:00 99.30 degrees Heart Rate 2020-03-16 15:04:00 95.00 /min Respiratory Rate 2020-03-16 15:04:00 Procedures Procedure Date / Time Performing Source Performed Clinician PHACOEMULSIFICATION OF 2022-11-12 Elvis Guadalupe [facility] CATARACT WITH INTRAOCULAR 13:25:00 [facility] LENS IMPLANT POCT GLUCOSE (AUTOMATED) 2022-11-12 Francesco [facility] 12:18:00 [facility] POCT GLUCOSE (AUTOMATED) 2022-11-12 Francesco [facility] 12:18:00 [facility] DAY SURGERY - ADC 2022-11-12 Doctor Unassigned, [facility] 05:01:00 [facility] ASSIGNMENT OF BENEFITS 2022-11-03 Doctor Unassigned, [facility] 22:03:54 [facility] INSURANCE CORRESPONDENCE 2021-09-10 Doctor Unassigned, [facility] 06:01:00 [facility] INSURANCE CORRESPONDENCE 2020-09-04 Doctor Unassigned, [facility] 06:01:00 [facility] DME/SUPPLY JUSTIFICATION 2020-07-31 Doctor [facility]assigned, [facility] EXTERNAL PROVIDER - ADC 2020-06-26 Doctor Unassigned, [facility] CARDIOLOGY 06:01:00 [facility] EXTERNAL PROVIDER - [facility] 2020-06-03 Doctor Unassigned, [facility] CARDIOLOGY 06:01:00 [facility] INSURANCE CORRESPONDENCE 2020-05-24 Doctor Unassigned, [facility] 06:01:00 [facility] ASSIGNMENT OF BENEFITS 2020-04-08 Doctor Unassigned, [facility] 21:06:07 [facility] Plan of Care Planned Activity Planned Date Details Comments Source Goal Plan of Care Note [code = 89862-1] Goal Plan of Care Note [code = 98283-9] Goal Plan of Care Note [code = 34346-0] Goal Plan of Care Note [code = 32918-9] Goal Plan of Care Note [code = 16124-7] Goal Plan of Care Note [code = 75385-8] Goal Plan of Care Note [code = 58803-6] Goal Plan of Care Note [code = 75494-5] Goal Plan of Care Note [code = 91441-5] Goal Plan of Care Note [code = 60056-7] Goal Plan of Care Note [code = 29954-8] Goal Plan of Care Note [code = 24530-9] Goal Plan of Care Note [code = 81099-4] Goal Plan of Care Note [code = 54599-5] Goal Plan of Care Note [code = 91825-5] Goal Plan of Care Note [code = 71515-3] Goal Plan of Care Note [code = 71432-0] Goal Plan of Care Note [code = 57023-3] Goal Plan of Care Note [code = 89121-0] Goal Plan of Care Note [code = 69780-3] Goal Plan of Care Note [code = 50270-5] Goal Plan of Care Note [code = 55830-7] Goal Plan of Care Note [code = 46168-8] Goal Plan of Care Note [code = 13380-4] Goal Plan of Care Note [code = 11973-6] Goal Plan of Care Note [code = 94453-5] Goal Plan of Care Note [code = 21619-4] Goal Plan of Care Note [code = 57835-4] Goal Plan of Care Note [code = 65318-1] Goal Plan of Care Note [code = 16452-8] Goal Plan of Care Note [code = 05204-6] Goal Plan of Care Note [code = 34815-9] Goal Plan of Care Note [code = 53200-0] Goal Plan of Care Note [code = 62893-8] Goal Plan of Care Note [code = 26919-8] Goal Plan of Care Note [code = 76781-0] Goal Plan of Care Note [code = 60640-9] Goal Plan of Care Note [code = 63819-2] Goal Plan of Care Note [code = 86280-6] Goal Plan of Care Note [code = 38923-3] Goal Plan of Care Note [code = 89187-8] Goal Plan of Care Note [code = 56192-4] Goal Plan of Care Note [code = 42401-9] Goal Plan of Care Note [code = 20359-2] Goal Plan of Care Note [code = 94282-5] Goal Plan of Care Note [code = 83190-7] Goal Plan of Care Note [code = 64835-1] Goal Plan of Care Note [code = 64621-4] Goal Plan of Care Note [code = 44730-0] Goal Plan of Care Note [code = 22334-8] Goal Plan of Care Note [code = 80986-5] Goal Plan of Care Note [code = 29103-5] Goal Plan of Care Note [code = 57709-8] Goal Plan of Care Note [code = 61972-8] Goal Plan of Care Note [code = 00279-0] Goal Plan of Care Note [code = 93854-5] Goal Plan of Care Note [code = 16098-8] Goal Plan of Care Note [code = 36672-8] Goal Plan of Care Note [code = 94370-4] Goal Plan of Care Note [code = 21378-5] Goal Plan of Care Note [code = 56661-6] Encounters Start End Encounter Admission Attending Care Care Encounter Source Date/Time Date/Time Type Type Clinicians Facility Department ID 2022-11-12 2022-11-12 Outpatient R [facility] OPH [id number] Univers 07:07:00 09:25:00 ELVIS itbenji [facility] 2022-11-12 2022-11-12 [facility] [id number] Univers 07:07:00 09:25:00 Encounter Elvis CLEMENT [id number] ity Abner [place] [id number] [facility] 071 Branch 2022-11-12 2022-11-12 Anesthesia Carmelo Solis [facility] [id number] Univers 08:30:00 08:57:00 Event Geoff Perrin 35 0.1.13.10 ity albina [place] [id number] [facility] 020 Branch 2022-11-12 2022-11-12 Surgery [facility] [id number] Univers 08:04:00 08:41:00 Elvis CLEMENT 350.1.13.10 i ty of [place] [id number] [facility] [address] 2022-11-12 2022-11-12 Orders Doctor DIANA 1.2.840.114 [id number] Univers 00:00:00 00:00:00 Only Unassigned, KARLY 350.1.13.10 ity of [facility] 4.2.7.2.[address] [place] [id number] [facility] [address] 2022-11-03 2022-11-03 Orders Doctor DIANA 1.2.840.114 [id number] Univers 00:00:00 00:00:00 Only Unassigned, KARLY 350.1.13.10 ity of [place] 4.2.7.2.686 [place] as [phone] [facility] [address] 2022-10-05 2022-10-05 Outpatient [facility] [id number] 023 [place] 17:00:06 17:00:06 0[address] [place] 2022-09-30 2022-09-30 Outpatient [facility] [id number] 023 [place] 09:06:14 09:06:14 0329 [place] 2022-01-31 2022-01-31 Outpatient [id number]- [id number] 7e [id number] 00:00:00 00:00:00 Visit [id number]-s -n19u-3u8 [id number]-5n023o [id number] 2022-01-16 2022-01-16 Outpatient [id number]-[id number] 00:00:00 00:00:00 Visit jo6l-2m1d p7n-4x6z-n -baec-0aa aec-0aa6f4 1b32l39bv 2f85ef 2021-09-10 2021-09-10 Outpatient R ONEIL [facility] [id number] [facility] 16:20:00 16:20:00 ONEIL SEARS itbenji of [facility] 2021-09-10 2021-09-10 Orders Doctor DIANA Philip2.840.114 [id number] Univers 00:00:00 00:00:00 Only Unassigned, KARLY 350.1.13.10 ity of [facility] 4.2.7.2.686 [place] as [phone] [address] 2020-09-04 2020-09-04 Office IMELDA Sears [id number] [facility] 16:37:04 16:59:16 Visit Strahil T [place] 350.1.13.10 [place] [phone] [place] dic[address] 2020-09-04 2020-09-04 Outpatient R ONEIL [facility] [id number] Univers 16:30:00 16:30:00 TUAN SEARSHIL ity [facility] 2020-09-04 2020-09-04 Outpatient R [facility] [id number] Univers 13:30:00 13:30:00 TUAN SEARSHIL ity [facility] 2020-09-04 2020-09-04 Orders Doctor ORTIZ 1.2.840.[id number] [place] [address] 00:00:00 00:00:00 Only Unassigned, KARLY 350.1.13.10 ity of [facility] 4.2.7.2.686 [place] as [phone] [address] 2020-08-02 2020-08-02 Telephone Renu WVBOBBI 1.2.840.114 [id number] Univers 00:00:00 00:00:00 Strahil T [place] 350.1.13.10 [place] [phone] [place] dic[address] 2020-07-31 2020-07-31 Office Renu WVBOBBI 1.2.228.076 [id number] Univers 16:13:57 16:43:57 Visit Strahil T [place] 350.1.13.10 [place] [phone] Oh dic[address] 2020-07-31 2020-07-31 Outpatient R ONEIL [facility] [id number] Univers 16:00:00 16:00:00 ATAMAX STOLLL ity of [facility] 2020-07-31 2020-07-31 Orders Doctor DIANA 1.2.840.114 [id number] Univers 00:00:00 00:00:00 Only Unassigned, KARLY 350.1.13.10 ity of [facility] 4.2.7.2.686 [place] as [phone] [address] 2020-07-11 2020-07-11 [facility]phone [facility] 1.2.840.114 [id number] Univers 00:00:00 00:00:00 Strahil T [place] 350.1.13.10 [place] [phone] [address] 2020-06-26 2020-06-26 Orders Doctor DIANA 1.2.840.114 [id number] Univers 00:00:00 00:00:00 Only Unassigned, KARLY 350.1.13.10 ity of [facility] 4.2.7.2.686 [place] as [phone] [address] 2020-06-06 2020-06-06 Telephone [facility] 1.2.840.114 [id number] Univers 00:00:00 00:00:00 Strahil T [place] 350.1.13.10 [place] [phone] [address] 2020-06-03 2020-06-03 Orders Doctor DIANA 1.2.840.114 [id number] Univers 00:00:00 00:00:00 Only Unassigned, KARLY 350.1.13.10 ity of [facility] 4.2.7.2.686 [place] as [phone] [address] 2020-05-29 2020-05-29 Office [facility] 1.2.667.534 [id number] Univers 15:13:51 15:43:51 Visit Strahil T [place] 350.1.13.10 [place] [facility] [phone] Oh dical [facility] 085 [facility] 2020-05-29 2020-05-29 Outpatient R MAX SEAR[facility] [id number] Univers 15:00:00 15:00:00 ATANASTUAN TALAMANTESHIL ity [facility] 2020-05-24 2020-05-24 Orders Doctor DIANA 1.2.840.114 [id number] Univers 00:00:00 00:00:00 Only Unassigned, KARLY 350.1.13.10 ity of [facility] 4.2.7.2.686 [place] as [phone] [address] 2020-04-08 2020-04-08 Hospital Radiology [facility] 1.2.840.114 [id number] Univers 16:00:00 23:59:00 Encounter [place] 350.1.13.10 [place] [phone] [facility] [address] 2020-04-08 2020-04-08 Outpatient R [facility] [id number] Univers 00:00:00 00:00:00 ity of [facility] 2020-04-08 2020-04-08 Orders Doctor DIANA 1.2.840.114 [id number] Univers 00:00:00 00:00:00 Only Unassigned, KARLY 350.1.13.10 ity of [facility] 4.2.7.2.686 [place] as [phone] [address] 2020-03-05 2020-03-05 Outpatient R [facility]AN [facility] [id number] Univers 20:00:00 20:00:00 KELLYONEIL STOLL itbenji [facility] 2020-03-05 2020-03-05 Photocopying Equipment Mechanic 1, [facility] Bed [facility] 1. 2.840.114 [id number] Univers 14:32:01 17:02:01 Visit Oneil Sears [place] 350.1.13. 10 [place] [phone] [facility] [address] 2020-03-04 2020-03-04 Laboratory Only, Adc Test [facility] 1.2.840. 114 [id number] Univers 08:30:30 08:45:30 Only Oneil Sears 350.1.13. 10 ity [facility] 4.2.7.2.686 [facility] [phone] [facility] [address] 2020-03-04 2020-03-04 Outpatient R ONEIL [facility] [id number] Univers 08:00:00 08:00:00 ONEIL SEARS ity [facility] 2020-03-04 2020-03-04 Letter DIANA Hollins 1.2.840.114 [id number] Univers 00:00:00 00:00:00 (Out) Carol BRANDT 350.1.13.10 it y of [facility] 4.2.7.2.686 [facility] [phone] [facility] [address] Results Test Description Test Time Test Comments Results Result Comments Source POCT GLUCOSE (AUTOMATED) 2022-11-12 12:19:26 Test Item Value Reference Range Interpretation Comme nts POCT GLU (test code = 5117359291) 195 mg/dL 70-110 H Lab Interpretation (test code = 41352-8) [facility]2022-11-12 12:19:26 Test Item Value Reference Range Interpretation Comments POCT GLU (test code = 2572519855) 195 mg/dL 70-110 H Lab Interpretation (test code = Abnormal 97750-2) [facility] [id number] 08:52:57 Test Item Value Reference Range Interpretation Comments INTACT PTH (test code = 5005) 58 PG/ML 15-65 RENAL FUNCTION [id number] 05:28:57 Test Item Value Reference Range Interpretation Comments GLUCOSE (test code = 2217) 165 MG/DL 70-99 H BUN (test code = 2208) 19 MG/DL 6-20 CREATININE (test code = 2214) 1.26 MG/DL 0.80-1.40 eGFR (2020 CKD-EPI) (test code 66 ML/MIN/1.73 >60 = 79123) CALC BUN/CREAT (test code = 15 RATIO 6-2234) SODIUM (test code = 2231) 142 MEQ/L 133-146 POTASSIUM (test code = 2228) 4.5 MEQ/L 3.5-5.4 CHLORIDE (test code = 2215) 104 MEQ/L 95-107 CARBON DIOXIDE (test code = 24 MEQ/L 2205) CALCIUM (test code = 2209) 10.5 MG/DL 8.5-10.5 PHOSPHORUS (test code = 2227) 3.1 MG/DL 2.5-4.5 ALBUMIN (test code = 2201) 4.2 G/DL 3.5-5.2 URIC [id number] 05:28:57 Test Item Value Reference Range Interpretation Comments URIC ACID (test code = 2233) 5.7 MG/DL 3.7-8.0 PROTEIN, [id number] 05:28:57 Test Item Value Reference Range Interpretation Comments PROTEIN, TOTAL (test code = 2229) 6.7 G/DL 6.1-8.3 VITAMIN D, 25 [id number] 04:28:22 Test Item Value Reference Range Interpretation Comments VITAMIN D, 25 OH 39 NG/ML SEE BELOW NOTE: 25-H YDROXYVITAMIN D (test code = 4958) ASSAY INC LUDES 25-HYDROXYVITAM IN D2 AND D3. METHODOLOGY IS CHEMILUMINESCEN T IMMUNOASSAY. * INTERPRETIVE RA NGES PEDIATRIC (<17 YEARS) . . . . . . . . . . . NG/ML 20-100ADULT: IN SUFFICIENT . . . . . . . . . . . . . . NG/ML <20 SUBOP TIMAL . . . . . . . . . . . . . . . NG/ML 20-29 OPT IMAL . . . . . . . . . . . . . . . . . NG/ML 30-100 HEMOGLOBIN [id number] 04:15:40 Test Item Value Reference Range Interpretation Comments HEMOGLOBIN A1c (test 7.5 % 4.2-5.6 H AMERIC AN DIABETES code = 43139) ASSOCIATION IDELINES FOR HGB A1C: PREDIABETES/INC REASED RISK . . . . . . . 5.7 -6.4% DIAGNOSIS OF DI ABETES . . . . . . . . . >=6 .5% WITH CONFIRMATION OR APPROPRIATE SYMPTOMS NOTE: ASSAY MAY BE AFFECTED BY HEMOGLOBINOPATH IES (SICKLE CELL ANEMIA, S- C DISEASE, OTHERS) OR AMY FICIALLY LOWERED BY DECR EASED RED CELL SURVIVAL ( HEMOLYTIC ANEMIAS, BLOOD LOSS, ETC.). CONSIDER ALTERN ATE TESTING OR LABORATORY C ONSULTATION. UNLESS OTHERWIS E INDICATED, ALL TESTING PER FORMED ATCLINICAL PATH OLOGY LABORATORIES, I [place]. [address] [place], [place] [address] LABORATORY DIRE CTOR: Bo DAVIDSONIA NUMBER [id number] [place]. [id number] ALBUMIN/CREATININE RATIO, URINE, [id number] 02:56:59 Test Item Value Reference Range Interpretation Comments CREATININE, URINE, 96.1 MG/DL NOT ESTAB RANDOM (test code = 2072) ALBUMIN, URINE, 58.9 MG/DL NOT ESTAB RANDOM (test code = 55249) CALC 613 MG/G <30 H Note: Albumin/ Creatinine ALBUMIN/CREAT, RND ratio ref erence interval (test code = reflects ADA [place] NKF [address]09) guidelines. UNL ESS OTHERWISE INDIC ATED, ALL TESTING PERFORM ED [facility], I [place] [place] [address] LABORATORY DIRE CTOR: Kaylynn DAVIDSON CLIA NUMBER [id number] CAP ACCREDITATION N O. [id number] COMPREHENSIVE METABOLIC [id number] 23:50:08 Test Item Value Reference Range Interpretation Comments GLUCOSE (test code = 152 MG/DL 70-99 H 2216) BUN (test code = 18 MG/DL -20 2207) CREATININE (test 1.39 MG/DL 0.80-1.40 code = 2214) eGFR (2020 CKD-EPI) 59 ML/MIN/1.73 >60 L (test code = 47479) CALC BUN/CREAT (test 13 RATIO - code = 2235) SODIUM (test code = 141 MEQ/L 388-300 4337) POTASSIUM (test code 4.5 MEQ/L 3.5-5.4 = 2228) CHLORIDE (test code 99 MEQ/L 95-107 = 2215) CARBON DIOXIDE (test 28 MEQ/L - code = 2206) CALCIUM (test code = 10.9 MG/DL 8.5-10.5 H 2208) PROTEIN, TOTAL (test 6.8 G/DL 6.1-8.3 code = 2229) ALBUMIN (test code = 4.5 G/DL 3.5-5.2 2200) CALC GLOBULIN (test 2.3 G/DL 1.9-3.7 code = 2240) CALC A/G RATIO (test 2.0 RATIO 1.0-2.6 code = 2234) BILIRUBIN, TOTAL 0.6 MG/DL See_Comment [Automated message] (test code = 220) The syste m which generated this result transmit marivel reference range : <=1.2. The refe rence range was not u sed to interpret th is result as normal/abnormal . ALKALINE PHOSPHATASE 59 U/L 40-123 (test code = 2203) AST (test code = 21 U/L 9-50 2217) ALT (test code = 23 U/L 5-50 2218) LIPID [id number] 23:50:08 Test Item Value Reference Range Interpretation Comments CHOLESTEROL (test 157 MG/DL <200 code = 2210) TRIGLYCERIDES (test 171 MG/DL <150 H code = 2232) HDL CHOLESTEROL (test 35 MG/DL >39 L code = 2220) CALC LDL CHOL (test 95 MG/DL <100 NOTE: C ALCULATED LDL code = 2237) IS BASED ON DAILY-LAUGHLIN METHOD WHICHINCLUDES ADJUSTABLE TRIGLYCERIDE:VL DL CHOLESTEROL RAT IO.THIS FACTOR VARIES B Y MEASURED TRIGLY CERIDE AND NON-HDLCHOL ESTEROL CONCENTRATIONS WITH INCREASED CALCU LATED LDL SEENIN HIGH ER TRIGLYCERIDE OR LOWER NON-HDL SPECIME NS. FOR MOREINFORMATION , SEE CLIENT ANNOUNCE MENT AT [email or web address] [email or web address] RATIO LDL/HDL 2.71 RATIO <3.55 (test code = 2238) HEMOGLOBIN [id number] 02:55:22 Test Item Value Reference Range Interpretation Comments HEMOGLOBIN A1c (test 7.1 % 4.2-5.6 H AMERIC AN DIABETES code = 42148) ASSOCIATION IDELINES FOR HGB A1C: PREDIABETES/INC REASED RISK . . . . . . . 5.7 -6.4% DIAGNOSIS OF DI ABETES . . . . . . . . . >=6 .5% WITH CONFIRMATION OR APPROPRIATE SYMPTOMS NOTE: ASSAY MAY BE AFFECTED BY HEMOGLOBINOPATH IES (SICKLE CELL ANEMIA, S- C DISEASE, OTHERS) OR AMY FICIALLY LOWERED BY DECR EASED RED CELL SURVIVAL ( HEMOLYTIC ANEMIAS, BLOOD LOSS, ETC.). CONSIDER ALTERN ATE TESTING OR LABORATORY C ONSULTATION. CULTURE, [id number] 11:51:17SPECIMEN NUMBER: [id number] CULTURE, URINE SPECIMEN NUMBER: [id number] SPECIMEN COMMENT: URINE SOURCE:URINE REPORT STATUS: FINAL FINAL REPORT: 01/18/2022 50-100,000 CFU/ML UROGENITAL AMBIKA PRESENT NO COM MON PATHOGENS UNLESS OTHERWISE INDICATED, ALL TESTING PERFORMED [facility] [facility] [address] [place] [address] NEUROUROLOGIST: BLANCA HERMAN M.D. CLIA NUMBER [id number] [place]. [id number] CULTURE, [id number] 00:00:00 Test Item Value Reference Range Interpretation Comments CULTURE, URINE (test SPECIMEN NUMBER: code = 07338) [id number] ALBUMIN, URINE, [id number] 03:15:45 Test Item Value Reference Range Interpretation Comments ALBUMIN, URINE, 34.1 MG/DL NOT ESTAB UNLESS OTHE RWISE RANDOM (test code INDICATED, ALL TESTING = 39604) PERFORMED [facility] [address] [place] [address] [facility] DIRECTOR: BLANCA HERMAN M.D. CLIA NUMBER [id number] CAP ACCREDITATION N O. [id number] MICROALBUMIN, [id number] 00:00:00 Test Item Value Reference Range Interpretation Comments ALBUMIN, URINE, RANDOM (test code 34.1 MG/DL = 45030) MICROALBUMIN, [id number] 00:00:00 Test Item Value Reference Range Interpretation Comments ALBUMIN, URINE, RANDOM (test code 34.1 MG/DL = 37340) COMPREHENSIVE METABOLIC [id number] 00:01:23 Test Item Value Reference Range Interpretation Comments GLUCOSE (test code = 187 MG/DL 70-99 H 2217) BUN (test code = 28 MG/DL 6-20 H 2208) CREATININE (test 1.76 MG/DL 0.80-1.40 H code = 2214) eGFR (2020 CKD-EPI) 44 ML/MIN/1.73 >60 L (test code = 73124) CALC BUN/CREAT (test 16 RATIO 6-28 code = 223) SODIUM (test code = 141 MEQ/L 149-924 0133) POTASSIUM (test code 4.3 MEQ/L 3.5-5.4 = 2227) CHLORIDE (test code 99 MEQ/L 95-107 = 2214) CARBON DIOXIDE (test 23 MEQ/L 19-31 code = 2205) CALCIUM (test code = 10.6 MG/DL 8.5-10.5 H 2208) PROTEIN, TOTAL (test 7.2 G/DL 6.1-8.3 code = 2228) ALBUMIN (test code = 4.4 G/DL 3.5-5.2 2200) CALC GLOBULIN (test 2.8 G/DL 1.9-3.7 code = 2239) CALC A/G RATIO (test 1.6 RATIO 1.0-2.6 code = 2233) BILIRUBIN, TOTAL 0.6 MG/DL See_Comment [Automated message] (test code = 2206) The [employer] which generated this result transmit marivel reference range : <=1.2. The refe rence range was not u sed to interpret th is result as normal/abnormal . ALKALINE PHOSPHATASE 57 U/L 40-123 (test code = 2203) AST (test code = 24 U/L 9-50 2217) ALT (test code = 35 U/L 5-50 2218) COMPREHENSIVE METABOLIC [id number] 00:00:00 Test Item Value Reference Range Interpretation Comments GLUCOSE (test code = 2217) 187 MG/DL BUN (test code = 2208) 28 MG/DL CREATININE (test code = 2214) 1.76 MG/DL eGFR (2020 CKD-EPI) (test code 44 ML/MIN/1.73 = 49772) CALC BUN/CREAT (test code = 16 RATIO 2234) SODIUM (test code = 2231) 141 MEQ/L POTASSIUM (test code = 2228) 4.3 MEQ/L CHLORIDE (test code = 2215) 99 MEQ/L CARBON DIOXIDE (test code = 23 MEQ/L 2205) CALCIUM (test code = 2208) 10.6 MG/DL PROTEIN, TOTAL (test code = 7.2 G/DL 2228) ALBUMIN (test code = 2201) 4.4 G/DL CALC GLOBULIN (test code = 2.8 G/DL 2240) CALC A/G RATIO (test code = 1.6 RATIO 2234) BILIRUBIN, TOTAL (test code = 0.6 MG/DL 2206) ALKALINE PHOSPHATASE (test 57 U/L code = 2204) AST (test code = 2218) 24 U/L ALT (test code = 2219) 35 U/L COMPREHENSIVE METABOLIC [id number] 00:00:00 Test Item Value Reference Range Interpretation Comments GLUCOSE (test code = 2217) 187 MG/DL BUN (test code = 2208) 28 MG/DL CREATININE (test code = 2214) 1.76 MG/DL eGFR (2020 CKD-EPI) (test code 44 ML/MIN/1.73 = 22278) CALC BUN/CREAT (test code = 16 RATIO 2235) SODIUM (test code = 2231) 141 MEQ/L POTASSIUM (test code = 2228) 4.3 MEQ/L CHLORIDE (test code = 2215) 99 MEQ/L CARBON DIOXIDE (test code = 23 MEQ/L 2205) CALCIUM (test code = 2209) 10.6 MG/DL PROTEIN, TOTAL (test code = 7.2 G/DL 2228) ALBUMIN (test code = 2201) 4.4 G/DL CALC GLOBULIN (test code = 2.8 G/DL 2240) CALC A/G RATIO (test code = 1.6 RATIO 2234) BILIRUBIN, TOTAL (test code = 0.6 MG/DL 2206) ALKALINE PHOSPHATASE (test 57 U/L code = 2204) AST (test code = 2218) 24 U/L ALT (test code = 2219) 35 U/L ALBUMIN/CREATININE RATIO, URINE, [id number] 04:22:08 Test Item Value Reference Range Interpretation Comments CREATININE, URINE, 93.0 MG/DL NOT ESTAB Referenc e interval for CONC. (test code = random ur ine samples has 2071) not been establ ished. ALBUMIN, URINE, 50.9 MG/DL Note: Test name is RANDOM (test code = changed to Urine Albumin 33850) from [employer] in in accordance with ADA and NKF Guidelines, and Albumin/Creatin ine ratio reference inter esteban reflects those Guidelines. Luisana lytic methodology is unchanged. No r eference interval for Ra ndom Urine Albumin i s available. CALC ALBUMIN/CREAT, 547 MG/G <30 H RND (test code = 15513) MICROALBUMIN/CREATININE, RANDOM AND [id number] 00:00:00 Test Item Value Reference Range Interpretation Comments CREATININE, URINE, CONC. (test 93.0 MG/DL code = 2072) ALBUMIN, URINE, RANDOM (test code 50.9 MG/DL = 81326) CALC ALBUMIN/CREAT, RND (test code 547 MG/G = 60527) MICROALBUMIN/CREATININE, RANDOM AND [id number] 00:00:00 Test Item Value Reference Range Interpretation Comments CREATININE, URINE, CONC. (test 93.0 MG/DL code = 2072) ALBUMIN, URINE, RANDOM (test code 50.9 MG/DL = 84272) CALC ALBUMIN/CREAT, RND (test code 547 MG/G = 94363) COMPREHENSIVE METABOLIC [id number] 02:14:03 Test Item Value Reference Range Interpretation Comments GLUCOSE (test code = 175 MG/DL 70-99 H 2216) BUN (test code = 25 MG/DL 6-20 H 2207) CREATININE (test 1.49 MG/DL 0.80-1.40 H EFFECTIVE code = 2214) 06/16/2021, [facility] HAS IMPLEMENTED THE NKF-ASN RECOMME NDED KD-EPI EGF R REFIT CALCULATI ON THAT DOES NOT INCLUDE A COEFFICIENT FOR RACE. FOR MORE INFORMATION, SE E ANNOUNCEMENT [email or web address] eGFR (2020 CKD-EPI) 54 ML/MIN/1.73 >60 L (test code = 49643) CALC BUN/CREAT (test 17 RATIO 6-28 code = 2235) SODIUM (test code = 138 MEQ/L 900-876 4252) POTASSIUM (test code 4.4 MEQ/L 3.5-5.4 = 2227) CHLORIDE (test code 98 MEQ/L 95-107 = 221) CARBON DIOXIDE (test 23 MEQ/L 19-31 code = 2206) CALCIUM (test code = 10.6 MG/DL 8.5-10.5 H 2208) PROTEIN, TOTAL (test 6.9 G/DL 6.1-8.3 code = 2229) ALBUMIN (test code = 4.5 G/DL 3.5-5.2 2200) CALC GLOBULIN (test 2.4 G/DL 1.9-3.7 code = 2240) CALC A/G RATIO (test 1.9 RATIO 1.0-2.6 code = 2234) BILIRUBIN, TOTAL 0.7 MG/DL See_Comment [Automated message] (test code = 2207) The syste m which generated this result transmit marivel reference range : <=1.2. The refe rence range was not u sed to interpret th is result as normal/abnormal . ALKALINE PHOSPHATASE 62 U/L 40-123 (test code = 2204) AST (test code = 22 U/L 9-50 2217) ALT (test code = 27 U/L 5-50 2218) LIPID [id number] 02:14:03 Test Item Value Reference Range Interpretation Comments CHOLESTEROL (test 152 MG/DL <200 code = 2210) TRIGLYCERIDES (test 252 MG/DL <150 H code = 2232) HDL CHOLESTEROL (test 32 MG/DL >39 L code = 2220) CALC LDL CHOL (test 87 MG/DL <100 NOTE: C ALCULATED LDL code = 2237) IS BASED ON DAILY-LAUGHLIN METHOD WHICHINCLUDES ADJUSTABLE TRIGLYCERIDE:VL DL CHOLESTEROL RAT IO.THIS FACTOR VARIES B Y MEASURED TRIGLY CERIDE AND NON-HDLCHOL ESTEROL CONCENTRATIONS WITH INCREASED CALCU LATED LDL SEENIN HIGH ER TRIGLYCERIDE OR LOWER NON-HDL SPECIME NS. FOR MOREINFORMATION , SEE CLIENT ANNOUNCE MENT AT [email or web address] LDL/HDL 2.72 RATIO <3.55 (test code = 2238) [id number] 00:47:29 Test Item Value Reference Range Interpretation Comments TESTOSTERONE (test 244 NG/DL 300-890 L UNLESS O THERWISE code = 2830) INDICATED, ALL TESTING PERFORMED [facility]Y [facility], [address] [place] [address] MARIA HANK DIRECTOR: BLANCA HERMAN M.D. CLIA NUMBER [id number] CAP ACCREDITATION N O. [id number] COMPREHENSIVE METABOLIC [id number] 00:00:00 Test Item Value Reference Range Interpretation Comments GLUCOSE (test code = 2217) 175 MG/DL BUN (test code = 2208) 25 MG/DL CREATININE (test code = 2214) 1.49 MG/DL eGFR (2020 CKD-EPI) (test code 54 ML/MIN/1.73 = 35762) CALC BUN/CREAT (test code = 17 RATIO 2235) SODIUM (test code = 2231) 138 MEQ/L POTASSIUM (test code = 2228) 4.4 MEQ/L CHLORIDE (test code = 2215) 98 MEQ/L CARBON DIOXIDE (test code = 23 MEQ/L 2205) CALCIUM (test code = 2209) 10.6 MG/DL PROTEIN, TOTAL (test code = 6.9 G/DL 2228) ALBUMIN (test code = 220) 4.5 G/DL CALC GLOBULIN (test code = 2.4 G/DL 2239) CALC A/G RATIO (test code = 1.9 RATIO 2233) BILIRUBIN, TOTAL (test code = 0.7 MG/DL 2206) ALKALINE PHOSPHATASE (test 62 U/L code = 2204) AST (test code = 2218) 22 U/L ALT (test code = 2219) 27 U/L LIPID [id number] 00:00:00 Test Item Value Reference Range Interpretation Comments CHOLESTEROL (test code = 2210) 152 MG/DL TRIGLYCERIDES (test code = 2232) 252 MG/DL HDL CHOLESTEROL (test code = 2220) 32 MG/DL CALC LDL CHOL (test code = 2237) 87 MG/DL RISK RATIO LDL/HDL (test code = 2.72 RATIO 2238) [id number] 00:00:00 Test Item Value Reference Range Interpretation Comments TESTOSTERONE (test code = 2830) 244 NG/DL COMPREHENSIVE METABOLIC [id number] 00:00:00 Test Item Value Reference Range Interpretation Comments GLUCOSE (test code = 2217) 175 MG/DL BUN (test code = 2208) 25 MG/DL CREATININE (test code = 2214) 1.49 MG/DL eGFR (2020 CKD-EPI) (test code 54 ML/MIN/1.73 = 81905) CALC BUN/CREAT (test code = 17 RATIO 2235) SODIUM (test code = 2231) 138 MEQ/L POTASSIUM (test code = 2228) 4.4 MEQ/L CHLORIDE (test code = 2215) 98 MEQ/L CARBON DIOXIDE (test code = 23 MEQ/L 2205) CALCIUM (test code = 2209) 10.6 MG/DL PROTEIN, TOTAL (test code = 6.9 G/DL 2228) ALBUMIN (test code = 2201) 4.5 G/DL CALC GLOBULIN (test code = 2.4 G/DL 0) CALC A/G RATIO (test code = 1.9 RATIO 223) BILIRUBIN, TOTAL (test code = 0.7 MG/DL 2206) ALKALINE PHOSPHATASE (test 62 U/L code = 2204) AST (test code = 2218) 22 U/L ALT (test code = 2219) 27 U/L LIPID [id number] 00:00:00 Test Item Value Reference Range Interpretation Comments CHOLESTEROL (test code = 2210) 152 MG/DL TRIGLYCERIDES (test code = 2232) 252 MG/DL HDL CHOLESTEROL (test code = 2220) 32 MG/DL CALC LDL CHOL (test code = 2237) 87 MG/DL RISK RATIO LDL/HDL (test code = 2.72 RATIO 2238) [id number] 00:00:00 Test Item Value Reference Range Interpretation Comments TESTOSTERONE (test code = 2830) 244 NG/DL HEMOGLOBIN [id number] 05:55:03 Test Item Value Reference Range Interpretation Comments HEMOGLOBIN A1c (test 7.0 % 4.2-5.6 H [employer]IC AN DIABETES code = 22818) ASSOCIATION [employer] FOR HGB A1C: PREDIABETES/INC REASED RISK . . . . . . . 5.7 -6.4% DIAGNOSIS OF DI ABETES . . . . . . . . . >=6 .5% WITH CONFIRMATION OR APPROPRIATE SYMPTOMS NOTE: ASSAY MAY BE AFFECTED BY HEMOGLOBINOPATH IES (SICKLE CELL ANEMIA, S- C DISEASE, OTHERS) OR AMY FICIALLY LOWERED BY DECR EASED RED CELL SURVIVAL ( HEMOLYTIC ANEMIAS, BLOOD LOSS, ETC.). CONSIDER ALTERN ATE TESTING OR LABORATORY C ONSULTATION. HEMOGLOBIN [id number] 00:00:00 Test Item Value Reference Range Interpretation Comments HEMOGLOBIN A1c (test code = 85082) 7.0 % HEMOGLOBIN [id number] 00:00:00 Test Item Value Reference Range Interpretation Comments HEMOGLOBIN A1c (test code = 72982) 7.0 % HEMOGLOBIN [id number] 00:00:00 Test Item Value Reference Range Interpretation Comments HEMOGLOBIN A1c (test code = 07132) 7.0 % HEMOGLOBIN [id number] 00:00:00 Test Item Value Reference Range Interpretation Comments HEMOGLOBIN A1c (test code = 47264) 7.0 % PSA, [id number] 00:00:00 Test Item Value Reference Range Interpretation Comments PSA, TOTAL (test code = 2606) 0.32 NG/ML PSA, [id number] 00:00:00 Test Item Value Reference Range Interpretation Comments PSA, TOTAL (test code = 2606) 0.32 NG/ML [id number] 00:00:00 Test Item Value Reference Range Interpretation Comments TESTOSTERONE (test code = 2830) 146 NG/DL PSA, [id number] 00:00:00 Test Item Value Reference Range Interpretation Comments PSA, TOTAL (test code = 2606) 0.32 NG/ML PSA, [id number] 00:00:00 Test Item Value Reference Range Interpretation Comments PSA, TOTAL (test code = 2606) 0.32 NG/ML [id number] 00:00:00 Test Item Value Reference Range Interpretation Comments TESTOSTERONE (test code = 2830) 146 NG/DL [id number] 00:00:00 Test Item Value Reference Range Interpretation Comments TESTOSTERONE (test code = 2830) 179 NG/DL FSH + LH [id number] 00:00:00 Test Item Value Reference Range Interpretation Comments FOLLICLE STIM HORMONE (test code = 12.7 IU/L 2700) LUTEINIZING HORMONE (test code = 14.0 IU/L 2776) [id number] 00:00:00 Test Item Value Reference Range Interpretation Comments TESTOSTERONE (test code = 2830) 179 NG/DL FSH + LH [id number] 00:00:00 Test Item Value Reference Range Interpretation Comments FOLLICLE STIM HORMONE (test code = 12.7 IU/L 2700) LUTEINIZING HORMONE (test code = 14.0 IU/L 2776) [id number] 00:00:00 Test Item Value Reference Range Interpretation Comments TESTOSTERONE (test code = 2830) 219 NG/DL LIPID [id number] 00:00:00 Test Item Value Reference Range Interpretation Comments CHOLESTEROL (test code = 2210) 158 MG/DL TRIGLYCERIDES (test code = 2232) 191 MG/DL HDL CHOLESTEROL (test code = 2220) 35 MG/DL CALC LDL CHOL (test code = 2237) 94 MG/DL RISK RATIO LDL/HDL (test code = 2.69 RATIO 2238) [id number] 00:00:00 Test Item Value Reference Range Interpretation Comments TESTOSTERONE (test code = 2830) 219 NG/DL LIPID [id number] 00:00:00 Test Item Value Reference Range Interpretation Comments CHOLESTEROL (test code = 2210) 158 MG/DL TRIGLYCERIDES (test code = 2232) 191 MG/DL HDL CHOLESTEROL (test code = 2220) 35 MG/DL CALC LDL CHOL (test code = 2237) 94 MG/DL RISK RATIO LDL/HDL (test code = 2.69 RATIO 2238) PROTEIN, 24 HOUR [id number] 00:00:00 Test Item Value Reference Range Interpretation Comments PROTEIN, URINE, CONC. (test 43 MG/DL code = 2104) PROTEIN, URINE 24 HR (test 1333 MG/24HOURS code = 2060) TOTAL URINE VOLUME (test code 3100 ML = 2056) PROTEIN, 24 HOUR [id number] 00:00:00 Test Item Value Reference Range Interpretation Comments PROTEIN, URINE, CONC. (test 43 MG/DL code = 2104) PROTEIN, URINE 24 HR (test 1333 MG/24HOURS code = 2060) TOTAL URINE VOLUME (test code 3100 ML = 2056) CBC (INCLUDES DIFF/PLT)2021-01-29 00:00:00 Test Item Value Reference Range Interpretation Comments WHITE BLOOD CELL COUNT (test 5.7 Thousand/uL code = 6690-2) RED BLOOD CELL COUNT (test 4.39 Million/uL code = 789-8) HEMOGLOBIN (test code = 14.7 g/dL 718-7) HEMATOCRIT (test code = 42.9 % 4544-3) MCV (test code = 787-2) 97.7 fL MCH (test code = 785-6) 33.5 pg MCHC (test code = 786-4) 34.3 g/dL RDW (test code = 788-0) 13.6 % PLATELET COUNT (test code = 250 Thousand/uL 777-3) MPV (test code = 776-5) 10.4 fL ABSOLUTE NEUTROPHILS (test 3414 cells/uL code = 751-8) ABSOLUTE BAND NEUTROPHILS DNR cells/uL (test code = 01216-0) ABSOLUTE METAMYELOCYTES (test DNR cells/uL code = 59277-1) ABSOLUTE MYELOCYTES (test DNR cells/uL code = 90064-8) ABSOLUTE PROMYELOCYTES (test DNR cells/uL code = 92886-9) ABSOLUTE LYMPHOCYTES (test 1522 cells/uL code = 731-0) ABSOLUTE MONOCYTES (test code 604 cells/uL = 742-7) ABSOLUTE EOSINOPHILS (test 131 cells/uL code = 711-2) ABSOLUTE BASOPHILS (test code 29 cells/uL = 704-7) ABSOLUTE BLASTS (test code = DNR cells/uL 91409-8) ABSOLUTE NUCLEATED RBC (test DNR cells/uL code = 18901-8) NEUTROPHILS (test code = 59.9 % 770-8) BAND NEUTROPHILS (test code = DNR % 764-1) METAMYELOCYTES (test code = DNR % 740-1) MYELOCYTES (test code = DNR % 749-2) PROMYELOCYTES (test code = DNR % 783-1) LYMPHOCYTES (test code = 26.7 % 736-9) REACTIVE LYMPHOCYTES (test DNR % code = 83058-4) MONOCYTES (test code = 10.6 % 5905-5) EOSINOPHILS (test code = 2.3 % 713-8) BASOPHILS (test code = 706-2) 0.5 % BLASTS (test code = 709-6) DNR % NUCLEATED RBC (test code = DNR /100WBC 09923-3) COMMENT(S) (test code = DNR 8251-1) LIPID PANEL, STANDARD [ADDED]2021-01-29 00:00:00 Test Item Value Reference Range Interpretation Comments CHOLESTEROL, TOTAL (test code 148 mg/dL = 2093-3) HDL CHOLESTEROL (test code = 33 mg/dL 2085-9) TRIGLYCERIDES (test code = 354 mg/dL 2571-8) LDL-CHOLESTEROL (test code = 72 mg/dL(calc) 26384-0) CHOL/HDLC RATIO (test code = 4.5 (calc) 9830-1) NON HDL CHOLESTEROL (test 115 mg/dL(calc) code = 64274-8) EXTRA SPECIMEN [ADDED]2021-01-29 00:00:00 Test Item Value Reference Range Interpretation Comments EXTRA TUBE RECEIVED (test code = ) SPECIMEN TYPE RECEIVED Serum Separator (SST) (test code = 25483-5) CBC (INCLUDES DIFF/PLT)2021-01-29 00:00:00 Test Item Value Reference Range Interpretation Comments WHITE BLOOD CELL COUNT (test 5.7 Thousand/uL code = 6690-2) RED BLOOD CELL COUNT (test 4.39 Million/uL code = 789-8) HEMOGLOBIN (test code = 14.7 g/dL 718-7) HEMATOCRIT (test code = 42.9 % 4544-3) MCV (test code = 787-2) 97.7 fL MCH (test code = 785-6) 33.5 pg MCHC (test code = 786-4) 34.3 g/dL RDW (test code = 788-0) 13.6 % PLATELET COUNT (test code = 250 Thousand/uL 777-3) MPV (test code = 776-5) 10.4 fL ABSOLUTE NEUTROPHILS (test 3414 cells/uL code = 751-8) ABSOLUTE BAND NEUTROPHILS DNR cells/uL (test code = 84498-6) ABSOLUTE METAMYELOCYTES (test DNR cells/uL code = 30907-5) ABSOLUTE MYELOCYTES (test DNR cells/uL code = 88134-6) ABSOLUTE PROMYELOCYTES (test DNR cells/uL code = 23899-4) ABSOLUTE LYMPHOCYTES (test 1522 cells/uL code = 731-0) ABSOLUTE MONOCYTES (test code 604 cells/uL = 742-7) ABSOLUTE EOSINOPHILS (test 131 cells/uL code = 711-2) ABSOLUTE BASOPHILS (test code 29 cells/uL = 704-7) ABSOLUTE BLASTS (test code = DNR cells/uL 07783-8) ABSOLUTE NUCLEATED RBC (test DNR cells/uL code = 50156-1) NEUTROPHILS (test code = 59.9 % 770-8) BAND NEUTROPHILS (test code = DNR % 764-1) METAMYELOCYTES (test code = DNR % 740-1) MYELOCYTES (test code = DNR % 749-2) PROMYELOCYTES (test code = DNR % 783-1) LYMPHOCYTES (test code = 26.7 % 736-9) REACTIVE LYMPHOCYTES (test DNR % code = 93937-3) MONOCYTES (test code = 10.6 % 5905-5) EOSINOPHILS (test code = 2.3 % 713-8) BASOPHILS (test code = 706-2) 0.5 % BLASTS (test code = 709-6) DNR % NUCLEATED RBC (test code = DNR /100WBC 73177-7) COMMENT(S) (test code = DNR 8251-1) LIPID PANEL, STANDARD [ADDED]2021-01-29 00:00:00 Test Item Value Reference Range Interpretation Comments CHOLESTEROL, TOTAL (test code 148 mg/dL = 2093-3) HDL CHOLESTEROL (test code = 33 mg/dL 2085-9) TRIGLYCERIDES (test code = 354 mg/dL 2571-8) LDL-CHOLESTEROL (test code = 72 mg/dL(calc) 60328-6) CHOL/HDLC RATIO (test code = 4.5 (calc) 9830-1) NON HDL CHOLESTEROL (test 115 mg/dL(calc) code = 28327-1) EXTRA SPECIMEN [ADDED]2021-01-29 00:00:00 Test Item Value Reference Range Interpretation Comments EXTRA TUBE RECEIVED (test code = ) SPECIMEN TYPE RECEIVED Serum Separator (SST) (test code = 16517-9) CBC (INCLUDES DIFF/PLT)2021-01-21 00:00:00 Test Item Value Reference Range Interpretation Comments WHITE BLOOD CELL COUNT (test TNP Thousand/uL code = 6690-2) RED BLOOD CELL COUNT (test DNR Million/uL code = 789-8) HEMOGLOBIN (test code = DNR g/dL 718-7) HEMATOCRIT (test code = DNR % 4544-3) MCV (test code = 787-2) DNR fL MCH (test code = 785-6) DNR pg MCHC (test code = 786-4) DNR g/dL RDW (test code = 788-0) DNR % PLATELET COUNT (test code = DNR Thousand/uL 777-3) MPV (test code = 776-5) DNR fL ABSOLUTE NEUTROPHILS (test DNR cells/uL code = 751-8) ABSOLUTE BAND NEUTROPHILS DNR cells/uL (test code = 63429-8) ABSOLUTE METAMYELOCYTES (test DNR cells/uL code = 19851-0) ABSOLUTE MYELOCYTES (test DNR cells/uL code = 72913-1) ABSOLUTE PROMYELOCYTES (test DNR cells/uL code = 33306-6) ABSOLUTE LYMPHOCYTES (test DNR cells/uL code = 731-0) ABSOLUTE MONOCYTES (test code DNR cells/uL = 742-7) ABSOLUTE EOSINOPHILS (test DNR cells/uL code = 711-2) ABSOLUTE BASOPHILS (test code DNR cells/uL = 704-7) ABSOLUTE BLASTS (test code = DNR cells/uL 18704-2) ABSOLUTE NUCLEATED RBC (test DNR cells/uL code = 71593-3) NEUTROPHILS (test code = DNR % 770-8) BAND NEUTROPHILS (test code = DNR % 764-1) METAMYELOCYTES (test code = DNR % 740-1) MYELOCYTES (test code = DNR % 749-2) PROMYELOCYTES (test code = DNR % 783-1) LYMPHOCYTES (test code = DNR % 736-9) REACTIVE LYMPHOCYTES (test DNR % code = 47408-0) MONOCYTES (test code = DNR % 5905-5) EOSINOPHILS (test code = DNR % 713-8) BASOPHILS (test code = 706-2) DNR % BLASTS (test code = 709-6) DNR % NUCLEATED RBC (test code = DNR /100WBC 13634-9) COMMENT(S) (test code = DNR 8251-1) COMPREHENSIVE METABOLIC [id number] 00:00:00 Test Item Value Reference Range Interpretation Comments GLUCOSE (test code = 138 mg/dL 2345-7) UREA NITROGEN (BUN) 15 mg/dL (test code = 3094-0) CREATININE (test code = 1.19 mg/dL 2160-0) eGFR NON-AFR. [place] 67 mL/min/1.73m2 (test code = 96312-4) eGFR 78 mL/min/1.73m2 (test code = 02876-9) BUN/CREATININE RATIO NOT APPLICABLE (calc) (test code = 3097-3) SODIUM (test code = 138 mmol/L 2951-2) POTASSIUM (test code = 3.9 mmol/L 2823-3) CHLORIDE (test code = 100 mmol/L 2075-0) CARBON DIOXIDE (test 28 mmol/L code = 2027-9) CALCIUM (test code = 10.1 mg/dL 07478-2) PROTEIN, TOTAL (test 6.5 g/dL code = 2885-2) ALBUMIN (test code = 4.1 g/dL 1751-7) GLOBULIN (test code = 2.4 g/dL(calc) 03925-6) ALBUMIN/GLOBULIN RATIO 1.7 (calc) (test code = 1759-0) BILIRUBIN, TOTAL (test 0.2 mg/dL code = 1974-2) ALKALINE PHOSPHATASE 48 U/L (test code = 6768-6) AST (test code = 12 U/L 1920-8) ALT (test code = 20 U/L 1742-6) HEMOGLOBIN [id number] 00:00:00 Test Item Value Reference Range Interpretation Comments HEMOGLOBIN A1c (test code = 6.9 %[facility] 4548-4) MICROALBUMIN, RANDOM URINE (W/CREATININE)2021-01-21 00:00:00 Test Item Value Reference Range Interpretation Comments CREATININE, RANDOM URINE 109 mg/dL (test code = 2161-8) ALBUMIN, URINE (test code = 48.7 mg/dL 02524-1) ALBUMIN/CREATININE RATIO, 447 mcg/mgcreat RANDOM URINE (test code = 9318-7) CBC (INCLUDES DIFF/PLT)2021-01-21 00:00:00 Test Item Value Reference Range Interpretation Comments WHITE BLOOD CELL COUNT (test TNP Thousand/uL code = 6690-2) RED BLOOD CELL COUNT (test DNR Million/uL code = 789-8) HEMOGLOBIN (test code = DNR g/dL 718-7) HEMATOCRIT (test code = DNR % 4544-3) MCV (test code = 787-2) DNR fL MCH (test code = 785-6) DNR pg MCHC (test code = 786-4) DNR g/dL RDW (test code = 788-0) DNR % PLATELET COUNT (test code = DNR Thousand/uL 777-3) MPV (test code = 776-5) DNR fL ABSOLUTE NEUTROPHILS (test DNR cells/uL code = 751-8) ABSOLUTE BAND NEUTROPHILS DNR cells/uL (test code = 63596-1) ABSOLUTE METAMYELOCYTES (test DNR cells/uL code = 90454-7) ABSOLUTE MYELOCYTES (test DNR cells/uL code = 93925-5) ABSOLUTE PROMYELOCYTES (test DNR cells/uL code = 13803-4) ABSOLUTE LYMPHOCYTES (test DNR cells/uL code = 731-0) ABSOLUTE MONOCYTES (test code DNR cells/uL = 742-7) ABSOLUTE EOSINOPHILS (test DNR cells/uL code = 711-2) ABSOLUTE BASOPHILS (test code DNR cells/uL = 704-7) ABSOLUTE BLASTS (test code = DNR cells/uL 04344-0) ABSOLUTE NUCLEATED RBC (test DNR cells/uL code = 77446-5) NEUTROPHILS (test code = DNR % 770-8) BAND NEUTROPHILS (test code = DNR % 764-1) METAMYELOCYTES (test code = DNR % 740-1) MYELOCYTES (test code = DNR % 749-2) PROMYELOCYTES (test code = DNR % 783-1) LYMPHOCYTES (test code = DNR % 736-9) REACTIVE LYMPHOCYTES (test DNR % code = 72318-7) MONOCYTES (test code = DNR % 5905-5) EOSINOPHILS (test code = DNR % 713-8) BASOPHILS (test code = 706-2) DNR % BLASTS (test code = 709-6) DNR % NUCLEATED RBC (test code = DNR /100WBC 05936-8) COMMENT(S) (test code = DNR 8251-1) COMPREHENSIVE METABOLIC [id number] 00:00:00 Test Item Value Reference Range Interpretation Comments GLUCOSE (test code = 138 mg/dL 2345-7) UREA NITROGEN (BUN) 15 mg/dL (test code = 3094-0) CREATININE (test code = 1.19 mg/dL 2160-0) eGFR NON-AFR. [place] 67 mL/min/1.73m2 (test code = 92679-1) eGFR 78 mL/min/1.73m2 (test code = 78963-2) BUN/CREATININE RATIO NOT APPLICABLE (calc) (test code = 3097-3) SODIUM (test code = 138 mmol/L 2951-2) POTASSIUM (test code = 3.9 mmol/L 2823-3) CHLORIDE (test code = 100 mmol/L 2075-0) CARBON DIOXIDE (test 28 mmol/L code = 2027-9) CALCIUM (test code = 10.1 mg/dL 04109-5) PROTEIN, TOTAL (test 6.5 g/dL code = 2885-2) ALBUMIN (test code = 4.1 g/dL 1751-7) GLOBULIN (test code = 2.4 g/dL(calc) 57664-3) ALBUMIN/GLOBULIN RATIO 1.7 (calc) (test code = 1759-0) BILIRUBIN, TOTAL (test 0.2 mg/dL code = 1975-2) ALKALINE PHOSPHATASE 48 U/L (test code = 6768-6) AST (test code = 12 U/L 1920-8) ALT (test code = 20 U/L 1742-6) HEMOGLOBIN [id number] 00:00:00 Test Item Value Reference Range Interpretation Comments HEMOGLOBIN A1c (test code = 6.9 %[facility] 4548-4) MICROALBUMIN, RANDOM URINE (W/CREATININE)2021-01-21 00:00:00 Test Item Value Reference Range Interpretation Comments CREATININE, RANDOM URINE 109 mg/dL (test code = 2161-8) ALBUMIN, URINE (test code = 48.7 mg/dL 88331-8) ALBUMIN/CREATININE RATIO, 447 mcg/mgcreat RANDOM URINE (test code = 9318-7) MICROALBUMIN/CREATININE, RANDOM AND [id number] 00:00:00 Test Item Value Reference Range Interpretation Comments CREATININE, URINE, CONC. (test 95.2 MG/DL code = 2072) ALBUMIN, URINE, RANDOM (test code 45.0 MG/DL = 28286) CALC ALBUMIN/CREAT, RND (test code 473 MG/G = 86133) MICROALBUMIN/CREATININE, RANDOM AND [id number] 00:00:00 Test Item Value Reference Range Interpretation Comments CREATININE, URINE, CONC. (test 95.2 MG/DL code = 2072) ALBUMIN, URINE, RANDOM (test code 45.0 MG/DL = 55166) CALC ALBUMIN/CREAT, RND (test code 473 MG/G = 02592) [id number] 00:00:00 Test Item Value Reference Range Interpretation Comments TSH, THIRD GENERATION (test code 2.610 UIU/ML = 2821) [id number] 00:00:00 Test Item Value Reference Range Interpretation Comments TSH, THIRD GENERATION (test code 2.610 UIU/ML = 2821) [id number] 00:00:00 Test Item Value Reference Range Interpretation Comments TSH, THIRD GENERATION (test code 2.610 UIU/ML = 2821) [id number] 00:00:00 Test Item Value Reference Range Interpretation Comments TSH, THIRD GENERATION (test code 2.610 UIU/ML = 2821) CBC W/AUTO [id number] 00:00:00 Test Item Value Reference Range Interpretation Comments WBC (test code = 1001) 7.7 K/UL RBC (test code = 1002) 4.65 M/UL HEMOGLOBIN (test code = 1003) 15.7 G/DL HEMATOCRIT (test code = 1004) 44.7 % MCV (test code = 1005) 96.1 fL MCH (test code = 1006) 33.8 PG MCHC (test code = 1007) 35.1 G/DL RDW (test code = 1038) 13.9 % NEUTROPHILS (test code = 1008) 67.0 % LYMPHOCYTES (test code = 1010) 20.8 % MONOCYTES (test code = 1011) 9.6 % EOSINOPHILS (test code = 1012) 2.2 % BASOPHILS (test code = 1013) 0.4 % PLATELET COUNT (test code = 1015) 278 K/UL CBC W/AUTO [id number] 00:00:00 Test Item Value Reference Range Interpretation Comments WBC (test code = 1001) 7.7 K/UL RBC (test code = 1002) 4.65 M/UL HEMOGLOBIN (test code = 1003) 15.7 G/DL HEMATOCRIT (test code = 1004) 44.7 % MCV (test code = 1005) 96.1 fL MCH (test code = 1006) 33.8 PG MCHC (test code = 1007) 35.1 G/DL RDW (test code = 1038) 13.9 % NEUTROPHILS (test code = 1008) 67.0 % LYMPHOCYTES (test code = 1010) 20.8 % MONOCYTES (test code = 1011) 9.6 % EOSINOPHILS (test code = 1012) 2.2 % BASOPHILS (test code = 1013) 0.4 % PLATELET COUNT (test code = 1015) 278 K/UL HEMOGLOBIN [id number] 00:00:00 Test Item Value Reference Range Interpretation Comments HEMOGLOBIN A1c (test code = 45071) 7.1 % HEMOGLOBIN [id number] 00:00:00 Test Item Value Reference Range Interpretation Comments HEMOGLOBIN A1c (test code = 88488) 7.1 % LIPID [id number] 00:00:00 Test Item Value Reference Range Interpretation Comments CHOLESTEROL (test code = 2210) 156 MG/DL TRIGLYCERIDES (test code = 2232) 195 MG/DL HDL CHOLESTEROL (test code = 2220) 33 MG/DL CALC LDL CHOL (test code = 2237) 94 MG/DL RISK RATIO LDL/HDL (test code = 2.85 RATIO 2238) COMPREHENSIVE METABOLIC [id number] 00:00:00 Test Item Value Reference Range Interpretation Comments GLUCOSE (test code = 2217) 156 MG/DL BUN (test code = 2208) 22 MG/DL CREATININE (test code = 2214) 1.28 MG/DL eGFR AMER. (test code 72 ML/MIN/1.73 = 12460) eGFR NON- AMER. (test 62 ML/MIN/1.73 code = 97055) CALC BUN/CREAT (test code = 17 RATIO 2235) SODIUM (test code = 2231) 136 MEQ/L POTASSIUM (test code = 2228) 4.3 MEQ/L CHLORIDE (test code = 2215) 94 MEQ/L CARBON DIOXIDE (test code = 28 MEQ/L 2206) CALCIUM (test code = 2209) 10.5 MG/DL PROTEIN, TOTAL (test code = 6.8 G/DL 2228) ALBUMIN (test code = 2201) 4.1 G/DL CALC GLOBULIN (test code = 2.7 G/DL 2240) CALC A/G RATIO (test code = 1.5 RATIO 2234) BILIRUBIN, TOTAL (test code = 0.6 MG/DL 2206) ALKALINE PHOSPHATASE (test 72 U/L code = 2204) AST (test code = 2218) 15 U/L ALT (test code = 2219) 17 U/L CBC W/AUTO [id number] 00:00:00 Test Item Value Reference Range Interpretation Comments WBC (test code = 1001) 7.7 K/UL RBC (test code = 1002) 4.65 M/UL HEMOGLOBIN (test code = 1003) 15.7 G/DL HEMATOCRIT (test code = 1004) 44.7 % MCV (test code = 1005) 96.1 fL MCH (test code = 1006) 33.8 PG MCHC (test code = 1007) 35.1 G/DL RDW (test code = 1038) 13.9 % NEUTROPHILS (test code = 1008) 67.0 % LYMPHOCYTES (test code = 1010) 20.8 % MONOCYTES (test code = 1011) 9.6 % EOSINOPHILS (test code = 1012) 2.2 % BASOPHILS (test code = 1013) 0.4 % PLATELET COUNT (test code = 1015) 278 K/UL CBC W/AUTO [id number] 00:00:00 Test Item Value Reference Range Interpretation Comments WBC (test code = 1001) 7.7 K/UL RBC (test code = 1002) 4.65 M/UL HEMOGLOBIN (test code = 1003) 15.7 G/DL HEMATOCRIT (test code = 1004) 44.7 % MCV (test code = 1005) 96.1 fL MCH (test code = 1006) 33.8 PG MCHC (test code = 1007) 35.1 G/DL RDW (test code = 1038) 13.9 % NEUTROPHILS (test code = 1008) 67.0 % LYMPHOCYTES (test code = 1010) 20.8 % MONOCYTES (test code = 1011) 9.6 % EOSINOPHILS (test code = 1012) 2.2 % BASOPHILS (test code = 1013) 0.4 % PLATELET COUNT (test code = 1015) 278 K/UL HEMOGLOBIN [id number] 00:00:00 Test Item Value Reference Range Interpretation Comments HEMOGLOBIN A1c (test code = 34138) 7.1 % HEMOGLOBIN [id number] 00:00:00 Test Item Value Reference Range Interpretation Comments HEMOGLOBIN A1c (test code = 97918) 7.1 % LIPID [id number] 00:00:00 Test Item Value Reference Range Interpretation Comments CHOLESTEROL (test code = 2210) 156 MG/DL TRIGLYCERIDES (test code = 2232) 195 MG/DL HDL CHOLESTEROL (test code = 2220) 33 MG/DL CALC LDL CHOL (test code = 2237) 94 MG/DL RISK RATIO LDL/HDL (test code = 2.85 RATIO 2238) COMPREHENSIVE METABOLIC [id number] 00:00:00 Test Item Value Reference Range Interpretation Comments GLUCOSE (test code = 2217) 156 MG/DL BUN (test code = 2208) 22 MG/DL CREATININE (test code = 2214) 1.28 MG/DL eGFR AMER. (test code 72 ML/MIN/1.73 = 32686) eGFR NON- AMER. (test 62 ML/MIN/1.73 code = 75080) CALC BUN/CREAT (test code = 17 RATIO 2235) SODIUM (test code = 2231) 136 MEQ/L POTASSIUM (test code = 2228) 4.3 MEQ/L CHLORIDE (test code = 2215) 94 MEQ/L CARBON DIOXIDE (test code = 28 MEQ/L 2205) CALCIUM (test code = 2209) 10.5 MG/DL PROTEIN, TOTAL (test code = 6.8 G/DL 2228) ALBUMIN (test code = 2201) 4.1 G/DL CALC GLOBULIN (test code = 2.7 G/DL 224) CALC A/G RATIO (test code = 1.5 RATIO 4) BILIRUBIN, TOTAL (test code = 0.6 MG/DL 2206) ALKALINE PHOSPHATASE (test 72 U/L code = 2204) AST (test code = 2218) 15 U/L ALT (test code = 2219) 17 U/L PROTEIN, 24 HOUR [id number] 00:00:00 Test Item Value Reference Range Interpretation Comments PROTEIN, URINE, CONC. (test 44 MG/DL code = 2104) PROTEIN, URINE 24 HR (test 1276 MG/24HOURS code = 2060) TOTAL URINE VOLUME (test code 2900 ML = 2055) PROTEIN, 24 HOUR [id number] 00:00:00 Test Item Value Reference Range Interpretation Comments PROTEIN, URINE, CONC. (test 44 MG/DL code = 2104) PROTEIN, URINE 24 HR (test 1276 MG/24HOURS code = 2060) TOTAL URINE VOLUME (test code 2900 ML = 2055) PROTEIN/CREATININE RATIO, URINE, 24 [id number] 00:00:00 Test Item Value Reference Range Interpretation Comments PROTEIN, URINE, CONC. (test 54 MG/DL code = 2104) PROTEIN, URINE 24 HR (test 1404 MG/24HOURS code = 2060) TOTAL URINE VOLUME (test code 2600 ML = 2056) CREATININE, URINE, CONC. 79.7 MG/DL (test code = 2071) CREATININE, URINE, 24 HR 2.1 GM/24HOURS (test code = 2110) CALC PROT/CREAT, 24 HR (test 678 MG/GCREAT code = 2165) PROTEIN/CREATININE RATIO, URINE, 24 [id number] 00:00:00 Test Item Value Reference Range Interpretation Comments PROTEIN, URINE, CONC. (test 54 MG/DL code = 2103) PROTEIN, URINE 24 HR (test 1404 MG/24HOURS code = 0) TOTAL URINE VOLUME (test code 2600 ML = 2055) CREATININE, URINE, CONC. 79.7 MG/DL (test code = 2071) CREATININE, URINE, 24 HR 2.1 GM/24HOURS (test code = 0) CALC PROT/CREAT, 24 HR (test 678 MG/GCREAT code = 2165) CULTURE, [id number] 00:00:00 Test Item Value Reference Range Interpretation Comments CULTURE, URINE (test SPECIMEN NUMBER: code = 29352) [id number] CULTURE, [id number] 00:00:00 Test Item Value Reference Range Interpretation Comments CULTURE, URINE (test SPECIMEN NUMBER: code = 33251) [id number] CBC W/AUTO [id number] 00:00:00 Test Item Value Reference Range Interpretation Comments WBC (test code = 1001) 5.9 K/UL RBC (test code = 1002) 4.65 M/UL HEMOGLOBIN (test code = 1003) 15.9 G/DL HEMATOCRIT (test code = 1004) 44.0 % MCV (test code = 1005) 94.6 fL MCH (test code = 1006) 34.2 PG MCHC (test code = 1007) 36.1 G/DL RDW (test code = 1038) 13.2 % NEUTROPHILS (test code = 1008) 69.2 % LYMPHOCYTES (test code = 1010) 19.2 % MONOCYTES (test code = 1011) 8.2 % EOSINOPHILS (test code = 1012) 2.9 % BASOPHILS (test code = 1013) 0.5 % PLATELET COUNT (test code = 1015) 241 K/UL CBC W/AUTO [id number] 00:00:00 Test Item Value Reference Range Interpretation Comments WBC (test code = 1001) 5.9 K/UL RBC (test code = 1002) 4.65 M/UL HEMOGLOBIN (test code = 1003) 15.9 G/DL HEMATOCRIT (test code = 1004) 44.0 % MCV (test code = 1005) 94.6 fL MCH (test code = 1006) 34.2 PG MCHC (test code = 1007) 36.1 G/DL RDW (test code = 1038) 13.2 % NEUTROPHILS (test code = 1008) 69.2 % LYMPHOCYTES (test code = 1010) 19.2 % MONOCYTES (test code = 1011) 8.2 % EOSINOPHILS (test code = 1012) 2.9 % BASOPHILS (test code = 1013) 0.5 % PLATELET COUNT (test code = 1015) 241 K/UL COMPREHENSIVE METABOLIC [id number] 00:00:00 Test Item Value Reference Range Interpretation Comments GLUCOSE (test code = 2217) 189 MG/DL BUN (test code = 2208) 23 MG/DL CREATININE (test code = 2214) 1.40 MG/DL eGFR AMER. (test code 65 ML/MIN/1.73 = 67896) eGFR NON- AMER. (test 56 ML/MIN/1.73 code = 93177) CALC BUN/CREAT (test code = 16 RATIO 2235) SODIUM (test code = 2231) 141 MEQ/L POTASSIUM (test code = 2228) 4.9 MEQ/L CHLORIDE (test code = 2215) 98 MEQ/L CARBON DIOXIDE (test code = 29 MEQ/L 2205) CALCIUM (test code = 2209) 10.1 MG/DL PROTEIN, TOTAL (test code = 7.2 G/DL 2228) ALBUMIN (test code = 2201) 4.5 G/DL CALC GLOBULIN (test code = 2.7 G/DL 2240) CALC A/G RATIO (test code = 1.7 RATIO 2234) BILIRUBIN, TOTAL (test code = 0.5 MG/DL 2206) ALKALINE PHOSPHATASE (test 66 U/L code = 2204) AST (test code = 2218) 14 U/L ALT (test code = 2219) 20 U/L HEMOGLOBIN [id number] 00:00:00 Test Item Value Reference Range Interpretation Comments HEMOGLOBIN A1c (test code = 75023) 7.2 % HEMOGLOBIN [id number] 00:00:00 Test Item Value Reference Range Interpretation Comments HEMOGLOBIN A1c (test code = 03637) 7.2 % CBC W/AUTO [id number] 00:00:00 Test Item Value Reference Range Interpretation Comments WBC (test code = 1001) 5.9 K/UL RBC (test code = 1002) 4.65 M/UL HEMOGLOBIN (test code = 1003) 15.9 G/DL HEMATOCRIT (test code = 1004) 44.0 % MCV (test code = 1005) 94.6 fL MCH (test code = 1006) 34.2 PG MCHC (test code = 1007) 36.1 G/DL RDW (test code = 1038) 13.2 % NEUTROPHILS (test code = 1008) 69.2 % LYMPHOCYTES (test code = 1010) 19.2 % MONOCYTES (test code = 1011) 8.2 % EOSINOPHILS (test code = 1012) 2.9 % BASOPHILS (test code = 1013) 0.5 % PLATELET COUNT (test code = 1015) 241 K/UL CBC W/AUTO [id number] 00:00:00 Test Item Value Reference Range Interpretation Comments WBC (test code = 1001) 5.9 K/UL RBC (test code = 1002) 4.65 M/UL HEMOGLOBIN (test code = 1003) 15.9 G/DL HEMATOCRIT (test code = 1004) 44.0 % MCV (test code = 1005) 94.6 fL MCH (test code = 1006) 34.2 PG MCHC (test code = 1007) 36.1 G/DL RDW (test code = 1038) 13.2 % NEUTROPHILS (test code = 1008) 69.2 % LYMPHOCYTES (test code = 1010) 19.2 % MONOCYTES (test code = 1011) 8.2 % EOSINOPHILS (test code = 1012) 2.9 % BASOPHILS (test code = 1013) 0.5 % PLATELET COUNT (test code = 1015) 241 K/UL COMPREHENSIVE METABOLIC [id number] 00:00:00 Test Item Value Reference Range Interpretation Comments GLUCOSE (test code = 2217) 189 MG/DL BUN (test code = 2208) 23 MG/DL CREATININE (test code = 2214) 1.40 MG/DL eGFR AMER. (test code 65 ML/MIN/1.73 = 80878) eGFR NON- AMER. (test 56 ML/MIN/1.73 code = 22485) CALC BUN/CREAT (test code = 16 RATIO 5) SODIUM (test code = 2231) 141 MEQ/L POTASSIUM (test code = 2228) 4.9 MEQ/L CHLORIDE (test code = 2215) 98 MEQ/L CARBON DIOXIDE (test code = 29 MEQ/L 2205) CALCIUM (test code = 2209) 10.1 MG/DL PROTEIN, TOTAL (test code = 7.2 G/DL 2228) ALBUMIN (test code = 2201) 4.5 G/DL CALC GLOBULIN (test code = 2.7 G/DL 2239) CALC A/G RATIO (test code = 1.7 RATIO 2233) BILIRUBIN, TOTAL (test code = 0.5 MG/DL 2206) ALKALINE PHOSPHATASE (test 66 U/L code = 2204) AST (test code = 2218) 14 U/L ALT (test code = 2219) 20 U/L HEMOGLOBIN [id number] 00:00:00 Test Item Value Reference Range Interpretation Comments HEMOGLOBIN A1c (test code = 22715) 7.2 % HEMOGLOBIN [id number] 00:00:00 Test Item Value Reference Range Interpretation Comments HEMOGLOBIN A1c (test code = 14464) 7.2 % [id number] 00:00:00 Test Item Value Reference Range Interpretation Comments TSH, THIRD GENERATION (test code 3.150 UIU/ML = 2821) [id number] 00:00:00 Test Item Value Reference Range Interpretation Comments TSH, THIRD GENERATION (test code 3.150 UIU/ML = 2821) PSA, FREE AND [id number] 00:00:00 Test Item Value Reference Range Interpretation Comments PROSTATIC SPECIFIC AG (test code = 0.33 NG/ML 068573) FREE PSA (test code = 763847) 0.12 NG/ML % FREE PSA (test code = 833043) 36 % [id number] 00:00:00 Test Item Value Reference Range Interpretation Comments TSH, THIRD GENERATION (test code 3.150 UIU/ML = 2821) [id number] 00:00:00 Test Item Value Reference Range Interpretation Comments TSH, THIRD GENERATION (test code 3.150 UIU/ML = 2821) PSA, FREE AND [id number] 00:00:00 Test Item Value Reference Range Interpretation Comments PROSTATIC SPECIFIC AG (test code = 0.33 NG/ML 577019) FREE PSA (test code = 438171) 0.12 NG/ML % FREE PSA (test code = 497494) 36 % CBC W/AUTO [id number] 00:00:00 Test Item Value Reference Range Interpretation Comments WBC (test code = 1001) 6.0 K/UL RBC (test code = 1002) 4.58 M/UL HEMOGLOBIN (test code = 1003) 15.9 G/DL HEMATOCRIT (test code = 1004) 45.1 % MCV (test code = 1005) 98.5 fL MCH (test code = 1006) 34.7 PG MCHC (test code = 1007) 35.3 G/DL RDW (test code = 1038) 14.2 % NEUTROPHILS (test code = 1008) 61.3 % LYMPHOCYTES (test code = 1010) 24.3 % MONOCYTES (test code = 1011) 11.2 % EOSINOPHILS (test code = 1012) 2.7 % BASOPHILS (test code = 1013) 0.5 % PLATELET COUNT (test code = 1015) 258 K/UL CBC W/AUTO [id number] 00:00:00 Test Item Value Reference Range Interpretation Comments WBC (test code = 1001) 6.0 K/UL RBC (test code = 1002) 4.58 M/UL HEMOGLOBIN (test code = 1003) 15.9 G/DL HEMATOCRIT (test code = 1004) 45.1 % MCV (test code = 1005) 98.5 fL MCH (test code = 1006) 34.7 PG MCHC (test code = 1007) 35.3 G/DL RDW (test code = 1038) 14.2 % NEUTROPHILS (test code = 1008) 61.3 % LYMPHOCYTES (test code = 1010) 24.3 % MONOCYTES (test code = 1011) 11.2 % EOSINOPHILS (test code = 1012) 2.7 % BASOPHILS (test code = 1013) 0.5 % PLATELET COUNT (test code = 1015) 258 K/UL LIPID [id number] 00:00:00 Test Item Value Reference Range Interpretation Comments CHOLESTEROL (test code = 2210) 154 MG/DL TRIGLYCERIDES (test code = 2232) 180 MG/DL HDL CHOLESTEROL (test code = 2220) 33 MG/DL CALC LDL CHOL (test code = 2237) 85 MG/DL RISK RATIO LDL/HDL (test code = 2.58 RATIO 2238) HEMOGLOBIN [id number] 00:00:00 Test Item Value Reference Range Interpretation Comments HEMOGLOBIN A1c (test code = 23846) 6.4 % HEMOGLOBIN [id number] 00:00:00 Test Item Value Reference Range Interpretation Comments HEMOGLOBIN A1c (test code = 56124) 6.4 % COMPREHENSIVE METABOLIC [id number] 00:00:00 Test Item Value Reference Range Interpretation Comments GLUCOSE (test code = 221) 132 MG/DL BUN (test code = 2208) 19 MG/DL CREATININE (test code = 2214) 1.27 MG/DL eGFR AMER. (test code 73 ML/MIN/1.73 = 10726) eGFR NON- AMER. (test 63 ML/MIN/1.73 code = 09493) CALC BUN/CREAT (test code = 15 RATIO 2234) SODIUM (test code = 2231) 141 MEQ/L POTASSIUM (test code = 2228) 4.3 MEQ/L CHLORIDE (test code = 2215) 99 MEQ/L CARBON DIOXIDE (test code = 25 MEQ/L 2205) CALCIUM (test code = 2209) 9.8 MG/DL PROTEIN, TOTAL (test code = 7.0 G/DL 2228) ALBUMIN (test code = 2201) 4.4 G/DL CALC GLOBULIN (test code = 2.6 G/DL 2239) CALC A/G RATIO (test code = 1.7 RATIO 2233) BILIRUBIN, TOTAL (test code = 0.6 MG/DL 2206) ALKALINE PHOSPHATASE (test 63 U/L code = 2204) AST (test code = 2218) 19 U/L ALT (test code = 2219) 26 U/L CBC W/AUTO [id number] 00:00:00 Test Item Value Reference Range Interpretation Comments WBC (test code = 1001) 6.0 K/UL RBC (test code = 1002) 4.58 M/UL HEMOGLOBIN (test code = 1003) 15.9 G/DL HEMATOCRIT (test code = 1004) 45.1 % MCV (test code = 1005) 98.5 fL MCH (test code = 1006) 34.7 PG MCHC (test code = 1007) 35.3 G/DL RDW (test code = 1038) 14.2 % NEUTROPHILS (test code = 1008) 61.3 % LYMPHOCYTES (test code = 1010) 24.3 % MONOCYTES (test code = 1011) 11.2 % EOSINOPHILS (test code = 1012) 2.7 % BASOPHILS (test code = 1013) 0.5 % PLATELET COUNT (test code = 1015) 258 K/UL CBC W/AUTO [id number] 00:00:00 Test Item Value Reference Range Interpretation Comments WBC (test code = 1001) 6.0 K/UL RBC (test code = 1002) 4.58 M/UL HEMOGLOBIN (test code = 1003) 15.9 G/DL HEMATOCRIT (test code = 1004) 45.1 % MCV (test code = 1005) 98.5 fL MCH (test code = 1006) 34.7 PG MCHC (test code = 1007) 35.3 G/DL RDW (test code = 1038) 14.2 % NEUTROPHILS (test code = 1008) 61.3 % LYMPHOCYTES (test code = 1010) 24.3 % MONOCYTES (test code = 1011) 11.2 % EOSINOPHILS (test code = 1012) 2.7 % BASOPHILS (test code = 1013) 0.5 % PLATELET COUNT (test code = 1015) 258 K/UL LIPID [id number] 00:00:00 Test Item Value Reference Range Interpretation Comments CHOLESTEROL (test code = 2210) 154 MG/DL TRIGLYCERIDES (test code = 2232) 180 MG/DL HDL CHOLESTEROL (test code = 2220) 33 MG/DL CALC LDL CHOL (test code = 2237) 85 MG/DL RISK RATIO LDL/HDL (test code = 2.58 RATIO 2238) HEMOGLOBIN [id number] 00:00:00 Test Item Value Reference Range Interpretation Comments HEMOGLOBIN A1c (test code = 38416) 6.4 % HEMOGLOBIN [id number] 00:00:00 Test Item Value Reference Range Interpretation Comments HEMOGLOBIN A1c (test code = 56190) 6.4 % COMPREHENSIVE METABOLIC [id number] 00:00:00 Test Item Value Reference Range Interpretation Comments GLUCOSE (test code = 2217) 132 MG/DL BUN (test code = 2208) 19 MG/DL CREATININE (test code = 2214) 1.27 MG/DL eGFR AMER. (test code 73 ML/MIN/1.73 = 02627) eGFR NON- AMER. (test 63 ML/MIN/1.73 code = 43879) CALC BUN/CREAT (test code = 15 RATIO 2235) SODIUM (test code = 2231) 141 MEQ/L POTASSIUM (test code = 2228) 4.3 MEQ/L CHLORIDE (test code = 2215) 99 MEQ/L CARBON DIOXIDE (test code = 25 MEQ/L 2205) CALCIUM (test code = 2209) 9.8 MG/DL PROTEIN, TOTAL (test code = 7.0 G/DL 2228) ALBUMIN (test code = 2201) 4.4 G/DL CALC GLOBULIN (test code = 2.6 G/DL 2240) CALC A/G RATIO (test code = 1.7 RATIO 2233) BILIRUBIN, TOTAL (test code = 0.6 MG/DL 2206) ALKALINE PHOSPHATASE (test 63 U/L code = 2204) AST (test code = 2218) 19 U/L ALT (test code = 2219) 26 U/L COMPREHENSIVE METABOLIC [id number] 00:00:00 Test Item Value Reference Range Interpretation Comments GLUCOSE (test code = 2217) 118 MG/DL BUN (test code = 2208) 21 MG/DL CREATININE (test code = 2214) 1.18 MG/DL eGFR AMER. (test code 81 ML/MIN/1.73 = 52015) eGFR NON- AMER. (test 70 ML/MIN/1.73 code = 69607) CALC BUN/CREAT (test code = 18 RATIO 2235) SODIUM (test code = 2231) 139 MEQ/L POTASSIUM (test code = 2228) 4.1 MEQ/L CHLORIDE (test code = 2215) 99 MEQ/L CARBON DIOXIDE (test code = 25 MEQ/L 2205) CALCIUM (test code = 2209) 9.1 MG/DL PROTEIN, TOTAL (test code = 6.6 G/DL 2228) ALBUMIN (test code = 2201) 4.1 G/DL CALC GLOBULIN (test code = 2.5 G/DL 2240) CALC A/G RATIO (test code = 1.6 RATIO 2234) BILIRUBIN, TOTAL (test code = 0.9 MG/DL 2207) ALKALINE PHOSPHATASE (test 60 U/L code = 2204) AST (test code = 2218) 20 U/L ALT (test code = 2219) 20 U/L COMPREHENSIVE METABOLIC [id number] 00:00:00 Test Item Value Reference Range Interpretation Comments GLUCOSE (test code = 2217) 118 MG/DL BUN (test code = 2208) 21 MG/DL CREATININE (test code = 2214) 1.18 MG/DL eGFR AMER. (test code 81 ML/MIN/1.73 = 90075) eGFR NON- AMER. (test 70 ML/MIN/1.73 code = 42485) CALC BUN/CREAT (test code = 18 RATIO 2235) SODIUM (test code = 2231) 139 MEQ/L POTASSIUM (test code = 2228) 4.1 MEQ/L CHLORIDE (test code = 2215) 99 MEQ/L CARBON DIOXIDE (test code = 25 MEQ/L 2205) CALCIUM (test code = 2209) 9.1 MG/DL PROTEIN, TOTAL (test code = 6.6 G/DL 2228) ALBUMIN (test code = 2201) 4.1 G/DL CALC GLOBULIN (test code = 2.5 G/DL 2240) CALC A/G RATIO (test code = 1.6 RATIO 2234) BILIRUBIN, TOTAL (test code = 0.9 MG/DL 7) ALKALINE PHOSPHATASE (test 60 U/L code = 2204) AST (test code = 2218) 20 U/L ALT (test code = 2219) 20 U/L COMPREHENSIVE METABOLIC [id number] 00:00:00 Test Item Value Reference Range Interpretation Comments GLUCOSE (test code = 2217) 138 MG/DL BUN (test code = 2208) 20 MG/DL CREATININE (test code = 2214) 1.12 MG/DL eGFR AMER. (test code 86 ML/MIN/1.73 = 01393) eGFR NON- AMER. (test 74 ML/MIN/1.73 code = 05928) CALC BUN/CREAT (test code = 18 RATIO 2235) SODIUM (test code = 2231) 144 MEQ/L POTASSIUM (test code = 2228) 4.6 MEQ/L CHLORIDE (test code = 2215) 102 MEQ/L CARBON DIOXIDE (test code = 26 MEQ/L 2205) CALCIUM (test code = 2209) 9.5 MG/DL PROTEIN, TOTAL (test code = 6.7 G/DL 2228) ALBUMIN (test code = 2201) 4.2 G/DL CALC GLOBULIN (test code = 2.5 G/DL 224) CALC A/G RATIO (test code = 1.7 RATIO 2233) BILIRUBIN, TOTAL (test code = 0.4 MG/DL 2206) ALKALINE PHOSPHATASE (test 62 U/L code = 220) AST (test code = 2218) 15 U/L ALT (test code = 2219) 18 U/L LIPID [id number] 00:00:00 Test Item Value Reference Range Interpretation Comments CHOLESTEROL (test code = 2210) 135 MG/DL TRIGLYCERIDES (test code = 2232) 90 MG/DL HDL CHOLESTEROL (test code = 2220) 36 MG/DL CALC LDL CHOL (test code = 2237) 81 MG/DL RISK RATIO LDL/HDL (test code = 2.25 RATIO 2238) COMPREHENSIVE METABOLIC [id number] 00:00:00 Test Item Value Reference Range Interpretation Comments GLUCOSE (test code = 2217) 138 MG/DL BUN (test code = 2208) 20 MG/DL CREATININE (test code = 2214) 1.12 MG/DL eGFR AMER. (test code 86 ML/MIN/1.73 = 17757) eGFR NON- AMER. (test 74 ML/MIN/1.73 code = 62053) CALC BUN/CREAT (test code = 18 RATIO 2235) SODIUM (test code = 2231) 144 MEQ/L POTASSIUM (test code = 2228) 4.6 MEQ/L CHLORIDE (test code = 2215) 102 MEQ/L CARBON DIOXIDE (test code = 26 MEQ/L 2205) CALCIUM (test code = 2209) 9.5 MG/DL PROTEIN, TOTAL (test code = 6.7 G/DL 2228) ALBUMIN (test code = 2201) 4.2 G/DL CALC GLOBULIN (test code = 2.5 G/DL 2240) CALC A/G RATIO (test code = 1.7 RATIO 223) BILIRUBIN, TOTAL (test code = 0.4 MG/DL 2207) ALKALINE PHOSPHATASE (test 62 U/L code = 2204) AST (test code = 2218) 15 U/L ALT (test code = 2219) 18 U/L LIPID [id number] 00:00:00 Test Item Value Reference Range Interpretation Comments CHOLESTEROL (test code = 2210) 135 MG/DL TRIGLYCERIDES (test code = 2232) 90 MG/DL HDL CHOLESTEROL (test code = 2220) 36 MG/DL CALC LDL CHOL (test code = 2237) 81 MG/DL RISK RATIO LDL/HDL (test code = 2.25 RATIO 2238) CBC W/AUTO [id number] 00:00:00 Test Item Value Reference Range Interpretation Comments WBC (test code = 1001) 6.0 K/UL RBC (test code = 1002) 4.43 M/UL HEMOGLOBIN (test code = 1003) 14.8 G/DL HEMATOCRIT (test code = 1004) 41.6 % MCV (test code = 1005) 93.9 fL MCH (test code = 1006) 33.4 PG MCHC (test code = 1007) 35.6 G/DL RDW (test code = 1038) 14.1 % NEUTROPHILS (test code = 1008) 70.0 % LYMPHOCYTES (test code = 1010) 17.5 % MONOCYTES (test code = 1011) 9.2 % EOSINOPHILS (test code = 1012) 2.8 % BASOPHILS (test code = 1013) 0.5 % PLATELET COUNT (test code = 1015) 224 K/UL CBC W/AUTO [id number] 00:00:00 Test Item Value Reference Range Interpretation Comments WBC (test code = 1001) 6.0 K/UL RBC (test code = 1002) 4.43 M/UL HEMOGLOBIN (test code = 1003) 14.8 G/DL HEMATOCRIT (test code = 1004) 41.6 % MCV (test code = 1005) 93.9 fL MCH (test code = 1006) 33.4 PG MCHC (test code = 1007) 35.6 G/DL RDW (test code = 1038) 14.1 % NEUTROPHILS (test code = 1008) 70.0 % LYMPHOCYTES (test code = 1010) 17.5 % MONOCYTES (test code = 1011) 9.2 % EOSINOPHILS (test code = 1012) 2.8 % BASOPHILS (test code = 1013) 0.5 % PLATELET COUNT (test code = 1015) 224 K/UL HEMOGLOBIN [id number] 00:00:00 Test Item Value Reference Range Interpretation Comments HEMOGLOBIN A1c (test code = 27038) 6.3 % HEMOGLOBIN [id number] 00:00:00 Test Item Value Reference Range Interpretation Comments HEMOGLOBIN A1c (test code = 63033) 6.3 % CBC W/AUTO [id number] 00:00:00 Test Item Value Reference Range Interpretation Comments WBC (test code = 1001) 6.0 K/UL RBC (test code = 1002) 4.43 M/UL HEMOGLOBIN (test code = 1003) 14.8 G/DL HEMATOCRIT (test code = 1004) 41.6 % MCV (test code = 1005) 93.9 fL MCH (test code = 1006) 33.4 PG MCHC (test code = 1007) 35.6 G/DL RDW (test code = 1038) 14.1 % NEUTROPHILS (test code = 1008) 70.0 % LYMPHOCYTES (test code = 1010) 17.5 % MONOCYTES (test code = 1011) 9.2 % EOSINOPHILS (test code = 1012) 2.8 % BASOPHILS (test code = 1013) 0.5 % PLATELET COUNT (test code = 1015) 224 K/UL CBC W/AUTO [id number] 00:00:00 Test Item Value Reference Range Interpretation Comments WBC (test code = 1001) 6.0 K/UL RBC (test code = 1002) 4.43 M/UL HEMOGLOBIN (test code = 1003) 14.8 G/DL HEMATOCRIT (test code = 1004) 41.6 % MCV (test code = 1005) 93.9 fL MCH (test code = 1006) 33.4 PG MCHC (test code = 1007) 35.6 G/DL RDW (test code = 1038) 14.1 % NEUTROPHILS (test code = 1008) 70.0 % LYMPHOCYTES (test code = 1010) 17.5 % MONOCYTES (test code = 1011) 9.2 % EOSINOPHILS (test code = 1012) 2.8 % BASOPHILS (test code = 1013) 0.5 % PLATELET COUNT (test code = 1015) 224 K/UL HEMOGLOBIN [id number] 00:00:00 Test Item Value Reference Range Interpretation Comments HEMOGLOBIN A1c (test code = 92139) 6.3 % HEMOGLOBIN [id number] 00:00:00 Test Item Value Reference Range Interpretation Comments HEMOGLOBIN A1c (test code = 26616) 6.3 % HEMOGLOBIN [id number] 00:00:00 Test Item Value Reference Range Interpretation Comments HEMOGLOBIN A1c (test code = 20184) 6.6 % HEMOGLOBIN [id number] 00:00:00 Test Item Value Reference Range Interpretation Comments HEMOGLOBIN A1c (test code = 66407) 6.6 % HEMOGLOBIN [id number] 00:00:00 Test Item Value Reference Range Interpretation Comments HEMOGLOBIN A1c (test code = 35237) 6.6 % HEMOGLOBIN [id number] 00:00:00 Test Item Value Reference Range Interpretation Comments HEMOGLOBIN A1c (test code = 70789) 6.6 % COMPREHENSIVE METABOLIC [id number] 00:00:00 Test Item Value Reference Range Interpretation Comments GLUCOSE (test code = 2217) 142 MG/DL BUN (test code = 2208) 24 MG/DL CREATININE (test code = 2214) 1.33 MG/DL eGFR AMER. (test code 70 ML/MIN/1.73 = 16551) eGFR NON- AMER. (test 61 ML/MIN/1.73 code = 94654) CALC BUN/CREAT (test code = 18 RATIO 2235) SODIUM (test code = 2231) 146 MEQ/L POTASSIUM (test code = 2228) 4.1 MEQ/L CHLORIDE (test code = 2215) 101 MEQ/L CARBON DIOXIDE (test code = 19 MEQ/L 2205) CALCIUM (test code = 2209) 9.7 MG/DL PROTEIN, TOTAL (test code = 7.0 G/DL 2228) ALBUMIN (test code = 2201) 4.3 G/DL CALC GLOBULIN (test code = 2.7 G/DL 0) CALC A/G RATIO (test code = 1.6 RATIO 2233) BILIRUBIN, TOTAL (test code = 0.5 MG/DL 2206) ALKALINE PHOSPHATASE (test 66 U/L code = 2204) AST (test code = 2218) 14 U/L ALT (test code = 2219) 18 U/L LIPID [id number] 00:00:00 Test Item Value Reference Range Interpretation Comments CHOLESTEROL (test code = 2210) 148 MG/DL TRIGLYCERIDES (test code = 2232) 164 MG/DL HDL CHOLESTEROL (test code = 2220) 33 MG/DL CALC LDL CHOL (test code = 2237) 82 MG/DL RISK RATIO LDL/HDL (test code = 2.49 RATIO 2238) [id number] 00:00:00 Test Item Value Reference Range Interpretation Comments TSH (test code = 2821) 4.08 UIU/ML [id number] 00:00:00 Test Item Value Reference Range Interpretation Comments TSH (test code = 2821) 4.08 UIU/ML COMPREHENSIVE METABOLIC [id number] 00:00:00 Test Item Value Reference Range Interpretation Comments GLUCOSE (test code = 2217) 142 MG/DL BUN (test code = 2208) 24 MG/DL CREATININE (test code = 2214) 1.33 MG/DL eGFR AMER. (test code 70 ML/MIN/1.73 = 73339) eGFR NON- AMER. (test 61 ML/MIN/1.73 code = 02814) CALC BUN/CREAT (test code = 18 RATIO 2235) SODIUM (test code = 2231) 146 MEQ/L POTASSIUM (test code = 2228) 4.1 MEQ/L CHLORIDE (test code = 2215) 101 MEQ/L CARBON DIOXIDE (test code = 19 MEQ/L 2205) CALCIUM (test code = 2209) 9.7 MG/DL PROTEIN, TOTAL (test code = 7.0 G/DL 2228) ALBUMIN (test code = 2201) 4.3 G/DL CALC GLOBULIN (test code = 2.7 G/DL 2239) CALC A/G RATIO (test code = 1.6 RATIO 2233) BILIRUBIN, TOTAL (test code = 0.5 MG/DL 2206) ALKALINE PHOSPHATASE (test 66 U/L code = 2204) AST (test code = 2218) 14 U/L ALT (test code = 2219) 18 U/L LIPID [id number] 00:00:00 Test Item Value Reference Range Interpretation Comments CHOLESTEROL (test code = 2210) 148 MG/DL TRIGLYCERIDES (test code = 2232) 164 MG/DL HDL CHOLESTEROL (test code = 2220) 33 MG/DL CALC LDL CHOL (test code = 2237) 82 MG/DL RISK RATIO LDL/HDL (test code = 2.49 RATIO 2238) [id number] 00:00:00 Test Item Value Reference Range Interpretation Comments TSH (test code = 2821) 4.08 UIU/ML [id number] 00:00:00 Test Item Value Reference Range Interpretation Comments TSH (test code = 2821) 4.08 UIU/ML CBC W/AUTO [id number] 00:00:00 Test Item Value Reference Range Interpretation Comments WBC (test code = 1001) 6.8 K/UL RBC (test code = 1002) 4.41 M/UL HEMOGLOBIN (test code = 1003) 14.7 G/DL HEMATOCRIT (test code = 1004) 42.2 % MCV (test code = 1005) 95.7 fL MCH (test code = 1006) 33.3 PG MCHC (test code = 1007) 34.8 G/DL RDW (test code = 1038) 13.5 % NEUTROPHILS (test code = 1008) 65.3 % LYMPHOCYTES (test code = 1010) 19.6 % MONOCYTES (test code = 1011) 11.7 % EOSINOPHILS (test code = 1012) 3.0 % BASOPHILS (test code = 1013) 0.4 % PLATELET COUNT (test code = 1015) 254 K/UL CBC W/AUTO [id number] 00:00:00 Test Item Value Reference Range Interpretation Comments WBC (test code = 1001) 6.8 K/UL RBC (test code = 1002) 4.41 M/UL HEMOGLOBIN (test code = 1003) 14.7 G/DL HEMATOCRIT (test code = 1004) 42.2 % MCV (test code = 1005) 95.7 fL MCH (test code = 1006) 33.3 PG MCHC (test code = 1007) 34.8 G/DL RDW (test code = 1038) 13.5 % NEUTROPHILS (test code = 1008) 65.3 % LYMPHOCYTES (test code = 1010) 19.6 % MONOCYTES (test code = 1011) 11.7 % EOSINOPHILS (test code = 1012) 3.0 % BASOPHILS (test code = 1013) 0.4 % PLATELET COUNT (test code = 1015) 254 K/UL CBC W/AUTO [id number] 00:00:00 Test Item Value Reference Range Interpretation Comments WBC (test code = 1001) 6.8 K/UL RBC (test code = 1002) 4.41 M/UL HEMOGLOBIN (test code = 1003) 14.7 G/DL HEMATOCRIT (test code = 1004) 42.2 % MCV (test code = 1005) 95.7 fL MCH (test code = 1006) 33.3 PG MCHC (test code = 1007) 34.8 G/DL RDW (test code = 1038) 13.5 % NEUTROPHILS (test code = 1008) 65.3 % LYMPHOCYTES (test code = 1010) 19.6 % MONOCYTES (test code = 1011) 11.7 % EOSINOPHILS (test code = 1012) 3.0 % BASOPHILS (test code = 1013) 0.4 % PLATELET COUNT (test code = 1015) 254 K/UL CBC W/AUTO [id number] 00:00:00 Test Item Value Reference Range Interpretation Comments WBC (test code = 1001) 6.8 K/UL RBC (test code = 1002) 4.41 M/UL HEMOGLOBIN (test code = 1003) 14.7 G/DL HEMATOCRIT (test code = 1004) 42.2 % MCV (test code = 1005) 95.7 fL MCH (test code = 1006) 33.3 PG MCHC (test code = 1007) 34.8 G/DL RDW (test code = 1038) 13.5 % NEUTROPHILS (test code = 1008) 65.3 % LYMPHOCYTES (test code = 1010) 19.6 % MONOCYTES (test code = 1011) 11.7 % EOSINOPHILS (test code = 1012) 3.0 % BASOPHILS (test code = 1013) 0.4 % PLATELET COUNT (test code = 1015) 254 K/UL COMPREHENSIVE METABOLIC [id number] 00:00:00 Test Item Value Reference Range Interpretation Comments GLUCOSE (test code = 2217) 101 MG/DL BUN (test code = 2208) 21 MG/DL CREATININE (test code = 2214) 1.28 MG/DL eGFR AMER. (test code 74 ML/MIN/1.73 = 97021) eGFR NON- AMER. (test 64 ML/MIN/1.73 code = 96289) CALC BUN/CREAT (test code = 16 RATIO 2235) SODIUM (test code = 2231) 143 MEQ/L POTASSIUM (test code = 2228) 4.3 MEQ/L CHLORIDE (test code = 2215) 100 MEQ/L CARBON DIOXIDE (test code = 24 MEQ/L 2205) CALCIUM (test code = 2209) 9.8 MG/DL PROTEIN, TOTAL (test code = 7.1 G/DL 2228) ALBUMIN (test code = 2201) 4.5 G/DL CALC GLOBULIN (test code = 2.6 G/DL 2240) CALC A/G RATIO (test code = 1.7 RATIO 2234) BILIRUBIN, TOTAL (test code = 0.5 MG/DL 2206) ALKALINE PHOSPHATASE (test 58 U/L code = 2204) AST (test code = 2218) 17 U/L ALT (test code = 2219) 24 U/L COMPREHENSIVE METABOLIC [id number] 00:00:00 Test Item Value Reference Range Interpretation Comments GLUCOSE (test code = 2216) 101 MG/DL BUN (test code = 2208) 21 MG/DL CREATININE (test code = 2214) 1.28 MG/DL eGFR AMER. (test code 74 ML/MIN/1.73 = 28367) eGFR NON- AMER. (test 64 ML/MIN/1.73 code = 10719) CALC BUN/CREAT (test code = 16 RATIO 2235) SODIUM (test code = 2231) 143 MEQ/L POTASSIUM (test code = 2228) 4.3 MEQ/L CHLORIDE (test code = 2215) 100 MEQ/L CARBON DIOXIDE (test code = 24 MEQ/L 2205) CALCIUM (test code = 2209) 9.8 MG/DL PROTEIN, TOTAL (test code = 7.1 G/DL 2228) ALBUMIN (test code = 2201) 4.5 G/DL CALC GLOBULIN (test code = 2.6 G/DL 2240) CALC A/G RATIO (test code = 1.7 RATIO 2234) BILIRUBIN, TOTAL (test code = 0.5 MG/DL 2206) ALKALINE PHOSPHATASE (test 58 U/L code = 2204) AST (test code = 2218) 17 U/L ALT (test code = 2219) 24 U/L COMPREHENSIVE METABOLIC [id number] 00:00:00 Test Item Value Reference Range Interpretation Comments GLUCOSE (test code = TEST NOT PERFORMED 2217) MG/DL BUN (test code = 2207) TEST NOT PERFORMED MG/DL CREATININE (test code = TEST NOT PERFORMED 4) MG/DL eGFR AMER. (test TEST NOT PERFORMED code = 94632) ML/MIN/1.73 eGFR NON- AMER. TEST NOT PERFORMED (test code = 64968) ML/MIN/1.73 CALC BUN/CREAT (test TEST NOT PERFORMED code = 223) RATIO SODIUM (test code = TEST NOT PERFORMED 2230) MEQ/L POTASSIUM (test code = TEST NOT PERFORMED 2227) MEQ/L CHLORIDE (test code = TEST NOT PERFORMED 2214) MEQ/L CARBON DIOXIDE (test TEST NOT PERFORMED code = 2205) MEQ/L CALCIUM (test code = TEST NOT PERFORMED 2208) MG/DL PROTEIN, TOTAL (test TEST NOT PERFORMED code = 2228) G/DL ALBUMIN (test code = TEST NOT PERFORMED 2200) G/DL CALC GLOBULIN (test code TEST NOT PERFORMED = 2240) G/DL CALC A/G RATIO (test TEST NOT PERFORMED code = 223) RATIO BILIRUBIN, TOTAL (test TEST NOT PERFORMED code = 2206) MG/DL ALKALINE PHOSPHATASE TEST NOT PERFORMED (test code = 2203) U/L AST (test code = 2217) TEST NOT PERFORMED U/L ALT (test code = 221) TEST NOT PERFORMED U/L COMPREHENSIVE METABOLIC [id number] 00:00:00 Test Item Value Reference Range Interpretation Comments GLUCOSE (test code = TEST NOT PERFORMED 2216) MG/DL BUN (test code = 2207) TEST NOT PERFORMED MG/DL CREATININE (test code = TEST NOT PERFORMED 2213) MG/DL eGFR AMER. (test TEST NOT PERFORMED code = 09157) ML/MIN/1.73 eGFR NON- AMER. TEST NOT PERFORMED (test code = 42565) ML/MIN/1.73 CALC BUN/CREAT (test TEST NOT PERFORMED code = 223) RATIO SODIUM (test code = TEST NOT PERFORMED 2230) MEQ/L POTASSIUM (test code = TEST NOT PERFORMED 2227) MEQ/L CHLORIDE (test code = TEST NOT PERFORMED 2214) MEQ/L CARBON DIOXIDE (test TEST NOT PERFORMED code = 2205) MEQ/L CALCIUM (test code = TEST NOT PERFORMED 2208) MG/DL PROTEIN, TOTAL (test TEST NOT PERFORMED code = 2228) G/DL ALBUMIN (test code = TEST NOT PERFORMED 2200) G/DL CALC GLOBULIN (test code TEST NOT PERFORMED = 2240) G/DL CALC A/G RATIO (test TEST NOT PERFORMED code = 2234) RATIO BILIRUBIN, TOTAL (test TEST NOT PERFORMED code = 2207) MG/DL ALKALINE PHOSPHATASE TEST NOT PERFORMED (test code = 220) U/L AST (test code = 2218) TEST NOT PERFORMED U/L ALT (test code = 2219) TEST NOT PERFORMED U/L CBC W/AUTO [id number] 00:00:00 Test Item Value Reference Range Interpretation Comments WBC (test code = 1001) 6.0 K/UL RBC (test code = 1002) 4.59 M/UL HEMOGLOBIN (test code = 1003) 15.0 G/DL HEMATOCRIT (test code = 1004) 43.3 % MCV (test code = 1005) 94.3 fL MCH (test code = 1006) 32.7 PG MCHC (test code = 1007) 34.6 G/DL RDW (test code = 1038) 14.2 % NEUTROPHILS (test code = 1008) 61 % LYMPHOCYTES (test code = 1010) 28 % MONOCYTES (test code = 1011) 8 % EOSINOPHILS (test code = 1012) 3 % BASOPHILS (test code = 1013) 1 % PLATELET COUNT (test code = 1015) 333 K/UL CBC W/AUTO [id number] 00:00:00 Test Item Value Reference Range Interpretation Comments WBC (test code = 1001) 6.0 K/UL RBC (test code = 1002) 4.59 M/UL HEMOGLOBIN (test code = 1003) 15.0 G/DL HEMATOCRIT (test code = 1004) 43.3 % MCV (test code = 1005) 94.3 fL MCH (test code = 1006) 32.7 PG MCHC (test code = 1007) 34.6 G/DL RDW (test code = 1038) 14.2 % NEUTROPHILS (test code = 1008) 61 % LYMPHOCYTES (test code = 1010) 28 % MONOCYTES (test code = 1011) 8 % EOSINOPHILS (test code = 1012) 3 % BASOPHILS (test code = 1013) 1 % PLATELET COUNT (test code = 1015) 333 K/UL CBC W/AUTO [id number] 00:00:00 Test Item Value Reference Range Interpretation Comments WBC (test code = 1001) 6.0 K/UL RBC (test code = 1002) 4.59 M/UL HEMOGLOBIN (test code = 1003) 15.0 G/DL HEMATOCRIT (test code = 1004) 43.3 % MCV (test code = 1005) 94.3 fL MCH (test code = 1006) 32.7 PG MCHC (test code = 1007) 34.6 G/DL RDW (test code = 1038) 14.2 % NEUTROPHILS (test code = 1008) 61 % LYMPHOCYTES (test code = 1010) 28 % MONOCYTES (test code = 1011) 8 % EOSINOPHILS (test code = 1012) 3 % BASOPHILS (test code = 1013) 1 % PLATELET COUNT (test code = 1015) 333 K/UL CBC W/AUTO [id number] 00:00:00 Test Item Value Reference Range Interpretation Comments WBC (test code = 1001) 6.0 K/UL RBC (test code = 1002) 4.59 M/UL HEMOGLOBIN (test code = 1003) 15.0 G/DL HEMATOCRIT (test code = 1004) 43.3 % MCV (test code = 1005) 94.3 fL MCH (test code = 1006) 32.7 PG MCHC (test code = 1007) 34.6 G/DL RDW (test code = 1038) 14.2 % NEUTROPHILS (test code = 1008) 61 % LYMPHOCYTES (test code = 1010) 28 % MONOCYTES (test code = 1011) 8 % EOSINOPHILS (test code = 1012) 3 % BASOPHILS (test code = 1013) 1 % PLATELET COUNT (test code = 1015) 333 K/UL COMPREHENSIVE METABOLIC [id number] 00:00:00 Test Item Value Reference Range Interpretation Comments GLUCOSE (test code = 2217) 140 MG/DL BUN (test code = 2208) 25 MG/DL CREATININE (test code = 2214) 1.56 MG/DL eGFR AMER. (test code 58 ML/MIN/1.73 = 39509) eGFR NON- AMER. (test 50 ML/MIN/1.73 code = 22978) CALC BUN/CREAT (test code = 16 RATIO 2235) SODIUM (test code = 2231) 143 MEQ/L POTASSIUM (test code = 2228) 4.1 MEQ/L CHLORIDE (test code = 2215) 101 MEQ/L CARBON DIOXIDE (test code = 17 MEQ/L 2205) CALCIUM (test code = 220) 8.8 MG/DL PROTEIN, TOTAL (test code = 6.2 G/DL 2228) ALBUMIN (test code = 2201) 3.9 G/DL CALC GLOBULIN (test code = 2.3 G/DL 224) CALC A/G RATIO (test code = 1.7 RATIO 2234) BILIRUBIN, TOTAL (test code = 0.8 MG/DL 2206) ALKALINE PHOSPHATASE (test 58 U/L code = 2204) AST (test code = 2218) 14 U/L ALT (test code = 2219) 12 U/L LIPID [id number] 00:00:00 Test Item Value Reference Range Interpretation Comments CHOLESTEROL (test code = 2210) 104 MG/DL TRIGLYCERIDES (test code = 2232) 124 MG/DL HDL CHOLESTEROL (test code = 2220) 14 MG/DL CALC LDL CHOL (test code = 2237) 65 MG/DL RISK RATIO LDL/HDL (test code = 4.66 RATIO 2238) COMPREHENSIVE METABOLIC [id number] 00:00:00 Test Item Value Reference Range Interpretation Comments GLUCOSE (test code = 2217) 140 MG/DL BUN (test code = 2208) 25 MG/DL CREATININE (test code = 2214) 1.56 MG/DL eGFR AMER. (test code 58 ML/MIN/1.73 = 39790) eGFR NON- AMER. (test 50 ML/MIN/1.73 code = 80311) CALC BUN/CREAT (test code = 16 RATIO 2235) SODIUM (test code = 2231) 143 MEQ/L POTASSIUM (test code = 2228) 4.1 MEQ/L CHLORIDE (test code = 2215) 101 MEQ/L CARBON DIOXIDE (test code = 17 MEQ/L 2205) CALCIUM (test code = 2209) 8.8 MG/DL PROTEIN, TOTAL (test code = 6.2 G/DL 2228) ALBUMIN (test code = 2201) 3.9 G/DL CALC GLOBULIN (test code = 2.3 G/DL 2240) CALC A/G RATIO (test code = 1.7 RATIO 2234) BILIRUBIN, TOTAL (test code = 0.8 MG/DL 2206) ALKALINE PHOSPHATASE (test 58 U/L code = 2204) AST (test code = 2218) 14 U/L ALT (test code = 2219) 12 U/L LIPID [id number] 00:00:00 Test Item Value Reference Range Interpretation Comments CHOLESTEROL (test code = 2210) 104 MG/DL TRIGLYCERIDES (test code = 2232) 124 MG/DL HDL CHOLESTEROL (test code = 2220) 14 MG/DL CALC LDL CHOL (test code = 2237) 65 MG/DL RISK RATIO LDL/HDL (test code = 4.66 RATIO 2238) CHLAMYDIA, TMA, URINE [ADDED]2015-12-17 00:00:00 Test Item Value Reference Range Interpretation Comments CHLAMYDIA, TMA (test code = 19380) NEGATIVE GONORRHEA, TMA, URINE [ADDED]2015-12-17 00:00:00 Test Item Value Reference Range Interpretation Comments GONORRHEA, TMA (test code = 87454) NEGATIVE CHLAMYDIA, TMA, URINE [ADDED]2015-12-17 00:00:00 Test Item Value Reference Range Interpretation Comments CHLAMYDIA, TMA (test code = 39961) NEGATIVE GONORRHEA, TMA, URINE [ADDED]2015-12-17 00:00:00 Test Item Value Reference Range Interpretation Comments GONORRHEA, TMA (test code = 46923) NEGATIVE [id number] 00:00:00 Test Item Value Reference Range Interpretation Comments TSH (test code = 2821) 2.3 UIU/ML [id number] 00:00:00 Test Item Value Reference Range Interpretation Comments TSH (test code = 2821) 2.3 UIU/ML CULTURE, URINE [ADDED]2015-12-16 00:00:00 Test Item Value Reference Range Interpretation Comments CULTURE, URINE (test SPECIMEN NUMBER: code = 95402) [id number] 00:00:00 Test Item Value Reference Range Interpretation Comments TSH (test code = 2821) 2.3 UIU/ML [id number] 00:00:00 Test Item Value Reference Range Interpretation Comments TSH (test code = 2821) 2.3 UIU/ML CULTURE, URINE [ADDED]2015-12-16 00:00:00 Test Item Value Reference Range Interpretation Comments CULTURE, URINE (test SPECIMEN NUMBER: code = 44369) [id number] CBC W/AUTO [id number] 00:00:00 Test Item Value Reference Range Interpretation Comments WBC (test code = 1001) 8.1 K/UL RBC (test code = 1002) 4.07 M/UL HEMOGLOBIN (test code = 1003) 13.5 G/DL HEMATOCRIT (test code = 1004) 40.0 % MCV (test code = 1005) 98.3 fL MCH (test code = 1006) 33.2 PG MCHC (test code = 1007) 33.8 G/DL RDW (test code = 1038) 14.5 % NEUTROPHILS (test code = 1008) 81 % LYMPHOCYTES (test code = 1010) 8 % MONOCYTES (test code = 1011) 10 % EOSINOPHILS (test code = 1012) 2 % BASOPHILS (test code = 1013) % PLATELET COUNT (test code = 1015) 157 K/UL CBC W/AUTO [id number] 00:00:00 Test Item Value Reference Range Interpretation Comments WBC (test code = 1001) 8.1 K/UL RBC (test code = 1002) 4.07 M/UL HEMOGLOBIN (test code = 1003) 13.5 G/DL HEMATOCRIT (test code = 1004) 40.0 % MCV (test code = 1005) 98.3 fL MCH (test code = 1006) 33.2 PG MCHC (test code = 1007) 33.8 G/DL RDW (test code = 1038) 14.5 % NEUTROPHILS (test code = 1008) 81 % LYMPHOCYTES (test code = 1010) 8 % MONOCYTES (test code = 1011) 10 % EOSINOPHILS (test code = 1012) 2 % BASOPHILS (test code = 1013) % PLATELET COUNT (test code = 1015) 157 K/UL HEMOGLOBIN [id number] 00:00:00 Test Item Value Reference Range Interpretation Comments HEMOGLOBIN A1c (test code = 23847) 5.2 % HEMOGLOBIN [id number] 00:00:00 Test Item Value Reference Range Interpretation Comments HEMOGLOBIN A1c (test code = 92086) 5.2 % CBC W/AUTO [id number] 00:00:00 Test Item Value Reference Range Interpretation Comments WBC (test code = 1001) 8.1 K/UL RBC (test code = 1002) 4.07 M/UL HEMOGLOBIN (test code = 1003) 13.5 G/DL HEMATOCRIT (test code = 1004) 40.0 % MCV (test code = 1005) 98.3 fL MCH (test code = 1006) 33.2 PG MCHC (test code = 1007) 33.8 G/DL RDW (test code = 1038) 14.5 % NEUTROPHILS (test code = 1008) 81 % LYMPHOCYTES (test code = 1010) 8 % MONOCYTES (test code = 1011) 10 % EOSINOPHILS (test code = 1012) 2 % BASOPHILS (test code = 1013) % PLATELET COUNT (test code = 1015) 157 K/UL CBC W/AUTO [id number] 00:00:00 Test Item Value Reference Range Interpretation Comments WBC (test code = 1001) 8.1 K/UL RBC (test code = 1002) 4.07 M/UL HEMOGLOBIN (test code = 1003) 13.5 G/DL HEMATOCRIT (test code = 1004) 40.0 % MCV (test code = 1005) 98.3 fL MCH (test code = 1006) 33.2 PG MCHC (test code = 1007) 33.8 G/DL RDW (test code = 1038) 14.5 % NEUTROPHILS (test code = 1008) 81 % LYMPHOCYTES (test code = 1010) 8 % MONOCYTES (test code = 1011) 10 % EOSINOPHILS (test code = 1012) 2 % BASOPHILS (test code = 1013) % PLATELET COUNT (test code = 1015) 157 K/UL HEMOGLOBIN [id number] 00:00:00 Test Item Value Reference Range Interpretation Comments HEMOGLOBIN A1c (test code = 64541) 5.2 % HEMOGLOBIN [id number] 00:00:00 Test Item Value Reference Range Interpretation Comments HEMOGLOBIN A1c (test code = 32727) 5.2 % HEMOGLOBIN [id number] 00:00:00 Test Item Value Reference Range Interpretation Comments HEMOGLOBIN A1c (test code = 89702) 5.6 % HEMOGLOBIN [id number] 00:00:00 Test Item Value Reference Range Interpretation Comments HEMOGLOBIN A1c (test code = 78132) 5.6 % HEMOGLOBIN [id number] 00:00:00 Test Item Value Reference Range Interpretation Comments HEMOGLOBIN A1c (test code = 18433) 5.6 % HEMOGLOBIN [id number] 00:00:00 Test Item Value Reference Range Interpretation Comments HEMOGLOBIN A1c (test code = 74402) 5.6 % HEMOGLOBIN [id number] 00:00:00 Test Item Value Reference Range Interpretation Comments HEMOGLOBIN A1c (test code = 48266) 5.5 % HEMOGLOBIN [id number] 00:00:00 Test Item Value Reference Range Interpretation Comments HEMOGLOBIN A1c (test code = 37437) 5.5 % HEMOGLOBIN [id number] 00:00:00 Test Item Value Reference Range Interpretation Comments HEMOGLOBIN A1c (test code = 44684) 5.5 % HEMOGLOBIN [id number] 00:00:00 Test Item Value Reference Range Interpretation Comments HEMOGLOBIN A1c (test code = 91680) 5.5 % COMPREHENSIVE METABOLIC [id number] 00:00:00 Test Item Value Reference Range Interpretation Comments GLUCOSE (test code = TEST NOT PERFORMED 2217) MG/DL COMPREHENSIVE METABOLIC [id number] 00:00:00 Test Item Value Reference Range Interpretation Comments GLUCOSE (test code = TEST NOT PERFORMED 2217) MG/DL CBC W/AUTO [id number] 00:00:00 Test Item Value Reference Range Interpretation Comments WBC (test code = 1001) 5.1 K/UL RBC (test code = 1002) 4.55 M/UL HEMOGLOBIN (test code = 1003) 14.6 G/DL HEMATOCRIT (test code = 1004) 43.1 % MCV (test code = 1005) 94.7 fL MCH (test code = 1006) 32.1 PG MCHC (test code = 1007) 33.9 G/DL RDW (test code = 1038) 13.9 % NEUTROPHILS (test code = 1008) 73 % LYMPHOCYTES (test code = 1010) 19 % MONOCYTES (test code = 1011) 6 % EOSINOPHILS (test code = 1012) 1 % BASOPHILS (test code = 1013) % PLATELET COUNT (test code = 1015) 283 K/UL CBC W/AUTO [id number] 00:00:00 Test Item Value Reference Range Interpretation Comments WBC (test code = 1001) 5.1 K/UL RBC (test code = 1002) 4.55 M/UL HEMOGLOBIN (test code = 1003) 14.6 G/DL HEMATOCRIT (test code = 1004) 43.1 % MCV (test code = 1005) 94.7 fL MCH (test code = 1006) 32.1 PG MCHC (test code = 1007) 33.9 G/DL RDW (test code = 1038) 13.9 % NEUTROPHILS (test code = 1008) 73 % LYMPHOCYTES (test code = 1010) 19 % MONOCYTES (test code = 1011) 6 % EOSINOPHILS (test code = 1012) 1 % BASOPHILS (test code = 1013) % PLATELET COUNT (test code = 1015) 283 K/UL HEMOGLOBIN [id number] 00:00:00 Test Item Value Reference Range Interpretation Comments HEMOGLOBIN A1c (test code = 56453) 5.4 % HEMOGLOBIN [id number] 00:00:00 Test Item Value Reference Range Interpretation Comments HEMOGLOBIN A1c (test code = 91888) 5.4 % COMPREHENSIVE METABOLIC [id number] 00:00:00 Test Item Value Reference Range Interpretation Comments GLUCOSE (test code = 2217) 101 MG/DL BUN (test code = 2208) 20 MG/DL CREATININE (test code = 2214) 1.4 MG/DL eGFR AMER. (test code 65 ML/MIN/1.73 = 04998) eGFR NON- AMER. (test 53 ML/MIN/1.73 code = 48278) CALCULATED BUN/CREAT (test 14 RATIO code = 2235) SODIUM (test code = 2231) 140 MEQ/L POTASSIUM (test code = 2228) 4.3 MEQ/L CHLORIDE (test code = 2215) 103 MEQ/L CARBON DIOXIDE (test code = 27 MEQ/L 2205) CALCIUM (test code = 2209) 9.6 MG/DL PROTEIN, TOTAL (test code = 6.9 G/DL 2228) ALBUMIN (test code = 2201) 4.4 G/DL CALCULATED GLOBULIN (test code 2.5 G/DL = 2240) CALCULATED A/G RATIO (test 1.8 RATIO code = 2234) BILIRUBIN, TOTAL (test code = 0.8 MG/DL 2206) ALKALINE PHOSPHATASE (test 46 U/L code = 2204) SGOT (AST) (test code = 2218) 13 U/L SGPT (ALT) (test code = 2219) 14 U/L LIPID [id number] 00:00:00 Test Item Value Reference Range Interpretation Comments CHOLESTEROL (test code = 2210) 154 MG/DL TRIGLYCERIDES (test code = 2232) 120 MG/DL HDL CHOLESTEROL (test code = 2220) 39 MG/DL CALCULATED LDL CHOL (test code = 91 MG/DL 2237) RISK RATIO LDL/HDL (test code = 2.33 RATIO 2238) THYROID II PROFILE (T3U, T4, T7, TSH)2014-11-15 00:00:00 Test Item Value Reference Range Interpretation Comments T3 UPTAKE (test code = 2817) 29.0 % T4 (THYROXINE) (test code = 2819) 7.5 UG/DL CALCULATED T7 (FTI) (test code = 2.18 2820) TSH (test code = 2821) 2.8 UIU/ML CBC W/AUTO [id number] 00:00:00 Test Item Value Reference Range Interpretation Comments WBC (test code = 1001) 5.1 K/UL RBC (test code = 1002) 4.55 M/UL HEMOGLOBIN (test code = 1003) 14.6 G/DL HEMATOCRIT (test code = 1004) 43.1 % MCV (test code = 1005) 94.7 fL MCH (test code = 1006) 32.1 PG MCHC (test code = 1007) 33.9 G/DL RDW (test code = 1038) 13.9 % NEUTROPHILS (test code = 1008) 73 % LYMPHOCYTES (test code = 1010) 19 % MONOCYTES (test code = 1011) 6 % EOSINOPHILS (test code = 1012) 1 % BASOPHILS (test code = 1013) % PLATELET COUNT (test code = 1015) 283 K/UL CBC W/AUTO [id number] 00:00:00 Test Item Value Reference Range Interpretation Comments WBC (test code = 1001) 5.1 K/UL RBC (test code = 1002) 4.55 M/UL HEMOGLOBIN (test code = 1003) 14.6 G/DL HEMATOCRIT (test code = 1004) 43.1 % MCV (test code = 1005) 94.7 fL MCH (test code = 1006) 32.1 PG MCHC (test code = 1007) 33.9 G/DL RDW (test code = 1038) 13.9 % NEUTROPHILS (test code = 1008) 73 % LYMPHOCYTES (test code = 1010) 19 % MONOCYTES (test code = 1011) 6 % EOSINOPHILS (test code = 1012) 1 % BASOPHILS (test code = 1013) % PLATELET COUNT (test code = 1015) 283 K/UL HEMOGLOBIN [id number] 00:00:00 Test Item Value Reference Range Interpretation Comments HEMOGLOBIN A1c (test code = 72137) 5.4 % HEMOGLOBIN [id number] 00:00:00 Test Item Value Reference Range Interpretation Comments HEMOGLOBIN A1c (test code = 51894) 5.4 % COMPREHENSIVE METABOLIC [id number] 00:00:00 Test Item Value Reference Range Interpretation Comments GLUCOSE (test code = 2217) 101 MG/DL BUN (test code = 2208) 20 MG/DL CREATININE (test code = 2214) 1.4 MG/DL eGFR AMER. (test code 65 ML/MIN/1.73 = 85952) eGFR NON- AMER. (test 53 ML/MIN/1.73 code = 22623) CALCULATED BUN/CREAT (test 14 RATIO code = 2235) SODIUM (test code = 2231) 140 MEQ/L POTASSIUM (test code = 2228) 4.3 MEQ/L CHLORIDE (test code = 2215) 103 MEQ/L CARBON DIOXIDE (test code = 27 MEQ/L 2205) CALCIUM (test code = 2209) 9.6 MG/DL PROTEIN, TOTAL (test code = 6.9 G/DL 2228) ALBUMIN (test code = 2201) 4.4 G/DL CALCULATED GLOBULIN (test code 2.5 G/DL = 2240) CALCULATED A/G RATIO (test 1.8 RATIO code = 2234) BILIRUBIN, TOTAL (test code = 0.8 MG/DL 2206) ALKALINE PHOSPHATASE (test 46 U/L code = 2204) SGOT (AST) (test code = 2218) 13 U/L SGPT (ALT) (test code = 2219) 14 U/L LIPID [id number] 00:00:00 Test Item Value Reference Range Interpretation Comments CHOLESTEROL (test code = 2210) 154 MG/DL TRIGLYCERIDES (test code = 2232) 120 MG/DL HDL CHOLESTEROL (test code = 2220) 39 MG/DL CALCULATED LDL CHOL (test code = 91 MG/DL 7) RISK RATIO LDL/HDL (test code = 2.33 RATIO 2238) THYROID II PROFILE (T3U, T4, T7, TSH)2014-11-15 00:00:00 Test Item Value Reference Range Interpretation Comments T3 UPTAKE (test code = 2817) 29.0 % T4 (THYROXINE) (test code = 2819) 7.5 UG/DL CALCULATED T7 (FTI) (test code = 2.18 0060) TSH (test code = 2821) 2.8 UIU/ML
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
[2023-02-20 13:11] VITALS: BP 181/101; TEMP 98.4; O2SAT 99
[2023-02-20 13:47] LABS: Barbiturates NEGATIVE (NEGATIVE); Benzodiazepines NEGATIVE (NEGATIVE); Cocaine NEGATIVE (NEGATIVE); METHAMPHETAM NEGATIVE (NEGATIVE); Methadone NEGATIVE (NEGATIVE); Opiates NEGATIVE (NEGATIVE); Phencyclidine NEGATIVE (NEGATIVE); THC Cannibis NEGATIVE (NEGATIVE)
== END 2023-02-20 12:44 | disposition home or self-care (01) ==
LOC: ER 11:19
DX: R82.5 Elevated urine levels of drugs, medicaments and biological substances (principal); V49.9XXA Car occupant (driver) (passenger) injured in unspecified traffic accident, initial encounter; Y93.89 Activity, other specified; Y92.9 Unspecified place or not applicable; Z02.83 Encounter for blood-alcohol and blood-drug test; Z88.0 Allergy status to penicillin; Z88.7 Allergy status to serum and vaccine
CPT/HCPCS: 36415; 80307; 82077; 99283